=== PATIENT | female | born 1970 | race Caucasian/White ===

== ENCOUNTER → 2020-03-20 11:33 | Outpatient (BNVA) | payer BC, SELFPAY | PROVIDERS: Visit Provider Nurse Practitioner Family | DX: Z79.899 Other long term (current) drug therapy (principal); E55.9 Vitamin D deficiency, unspecified; R53.83 Other fatigue; Z13.6 Encounter for screening for cardiovascular disorders; Z01.419 Encounter for gynecological examination (general) (routine) without abnormal findings; Z12.31 Encounter for screening mammogram for malignant neoplasm of breast | CPT/HCPCS: 80053; 80061; 81001; 82306; 83036; 84443; 85025; 88175 ==

== ENCOUNTER 2020-05-20 11:56 | Outpatient (CLI) | payer BC, SELFPAY ==
--- NOTE | 2020-05-20 12:00 | MM_ITS ---
WS: [id number] SCREENING DIGITAL MAMMOGRAM WITH CAD HISTORY: breast cancer screening COMPARISON: 08/26/2015 Bilateral CC and MLO views submitted. Computer aided detection analyzed. Breast composition: There are scattered areas of fibroglandular density. No suspicious masses, microc alcifications or architectural distortion. MM/[place] [id number] IMPRESSION: BI-RADS: 1-Negative FOLLOW UP: 1 Year Follow-up
== END 2020-05-20 11:57 | disposition home or self-care (01) ==
PROVIDERS: PCP Nurse Practitioner Family; Visit Provider Nurse Practitioner Family
DX: Z12.31 Encounter for screening mammogram for malignant neoplasm of breast (principal)
CPT/HCPCS: 77067

== ENCOUNTER → 2020-08-06 12:17 | Outpatient (BNVA) | payer BC, SELFPAY | PROVIDERS: PCP Nurse Practitioner Family; Visit Provider Nurse Practitioner Family | DX: S46.911A Strain of unspecified muscle, fascia and tendon at shoulder and upper arm level, right arm, initial encounter (principal); X58.XXXA Exposure to other specified factors, initial encounter | CPT/HCPCS: 73030; 80053; 81003; 82150; 83036; 83690; 85025 ==

== ENCOUNTER → 2020-08-13 11:19 | Outpatient (BNVA) | payer BC, SELFPAY | PROVIDERS: PCP Nurse Practitioner Family; Visit Provider Internal Medicine | DX: Z11.59 Encounter for screening for other viral diseases (principal); R10.9 Unspecified abdominal pain; K92.1 Melena | CPT/HCPCS: 87635 ==

== ENCOUNTER 2020-08-14 07:49 | Outpatient (CLI) | payer BC, SELFPAY ==
--- NOTE | 2020-08-14 08:00 | US_ITS ---
WS: [id number] Complete ABDOMINAL ULTRASOUND HISTORY: abdominal pain COMPARISON: None available. Liver: 19.5 cm in length. Liver is very large and heterogeneous. Lobulated borders. There are multipl e ill-defined hyperechoic lesions throughout the liver. Highly suspicious for metastatic disease. No bile duct dilatation. Gallbladder: Normally distended with no gallstones, wall thickening or pericholecystic fluid. Gallbladder wall thickness: 0.3 cm. Pancreas: Normal size and echogenicity. CBD: 0.4 cm. Right kidney: 11.5 cm x 4.5 cm x 3.9 cm. Normal size kidney. On several images submitted there is an asymmetric appearance of the cortex of the kidney but no discrete mass. Left kidney: 10.6 cm x 4.5 cm x 4.5 cm. No mass, cortical thickening or hydronephrosis. Spleen: Normal size and echogenicity. Abdominal aorta and IVC are within normal limits. No ascites. US/US abdomen complete* [id number] IMPRESSION: 1. Abnormal liver. Highly suspicious for diffuse metastatic disease. This will need to be confirmed by CT evaluation. Recommend CT abdomen and pelvis with IV and oral contrast. 2. Negative gallbladder.
== END 2020-08-14 07:50 | disposition home or self-care (01) ==
LOC: US 07:50
PROVIDERS: PCP Nurse Practitioner Family; Visit Provider Nurse Practitioner Family
DX: R10.9 Unspecified abdominal pain (principal)
CPT/HCPCS: 76700

== ENCOUNTER 2020-08-15 08:23 | Outpatient (CLI) | payer BC, SELFPAY ==
--- NOTE | 2020-08-15 10:00 | CT_ITS ---
WS: [id number] CT CHEST, ABDOMEN AND PELVIS WITH CONTRAST. HISTORY: elevated liver enzymes, abnormal US TECHNIQUE: Contiguous 5 mm axial imaging performed through the chest, abdomen and pelvis with IV cont rast, oral contrast has been provided. Coronal and sagittal reformats chest. Coronal and sagittal ref ormats through the abdomen and pelvis. All CT scans at [facility] use at least one of the se dose optimization techniques: automated exposure control; mA and/or kV adjustment per patient size (includes targeted exams where dose is matched to clinical indication); or iterative reconstruction. CONTRAST: Omnipaque 300; 95 mL IV. DLP: 1396.32 mGy.cm COMPARISON: Ultrasound 08/14/2020. Chest CT: Lobulated 4.4 mm nodule in the RIGHT lower lobe, image 31 of series 4. No additional nodule s are identified. No pneumonia. No mediastinal or hilar adenopathy. Heart size is normal. No pericard ial or pleural effusion. Small hiatal hernia. 8 mm RIGHT thyroid nodule. Abdomen CT: Liver is enlarged and contains innumerable areas of decreased attenuation consistent with metastatic disease. This corresponds to the ultrasound was recently performed. Largest lesions measu re up to 6 cm in diameter. Majority of these lucencies are confluent. Gallbladder is negative. Spleen and pancreas are negative. No adrenal mass. Normal kidneys. Normal aorta. No adenopathy in the upper abdomen. 8 cm distal colon/sigmoid stricture with near complete obstruction. The hawkins are of increased attenu ation and enhancement. This is a neoplastic stricture into proven otherwise. There is mild more proxi mal obstruction. No additional lesions are identified. The appendix is negative. No adjacent lymph no sheron are identified. Pelvic CT: There is a small amount of free fluid in the pelvis. Slightly more than physiologic. Mildl y heterogeneous appearance to the endometrium and a hyper dense nodule in the LEFT uterus may be a ti ny fibroid. Urinary bladder is well distended. There are 2 sclerotic areas in the pelvis which could very well be benign bone islands. There is one sclerotic area in each ilium. CT/CT chest abd pel w con* IMPRESSION: 1. Diffuse metastatic disease throughout the liver. 2. High-grade distal descending/sigmoid neoplastic stricture extending over le ngth of 8 cm. Near complete colonic obstruction. No adjacent pericolonic adenop athy. 3. Indeterminate, noncalcified RIGHT lower lobe pulmonary nodule measures 4.4 mm. Neoplastic versus benign. 4. Small amount free fluid in the pelvis, slightly greater than physiologic. 5. Small sclerotic foci within the pelvis bilaterally may be benign bone islan ds. Very early osteoblastic disease cannot be completely excluded. Notified Dr. Cifuentes at 08/15/2020 12:47 PM.
[2020-08-15] MEDS: iohexol 300 mg/mL 50 mL Btl PO (11:02)
[2020-08-15] MEDS: iohexol 300 mg/mL 100 mL Btl IV (12:16)
== END 2020-08-15 08:24 | disposition home or self-care (01) ==
LOC: RAD 10:53
PROVIDERS: PCP Nurse Practitioner Family; Visit Provider Nurse Practitioner Family
DX: R93.5 Abnormal findings on diagnostic imaging of other abdominal regions, including retroperitoneum; R94.5 Abnormal results of liver function studies; K76.9 Liver disease, unspecified; K56.699 Other intestinal obstruction unspecified as to partial versus complete obstruction; R91.1 Solitary pulmonary nodule
CPT/HCPCS: 71260; 74177

== ENCOUNTER 2020-08-15 08:23 | Day surgery (SDC) | payer BC, SELFPAY ==
[2020-08-14 10:11] VITALS: BMI 26.5
[2020-08-15 08:45] VITALS: BP 153/111; PULSE 117; RESP 18; TEMP 36.8; O2SAT 98
[2020-08-15] MEDS: sodium chloride 0.9% 1,000 ML 30 ML IV (08:58)
[2020-08-15 09:00] LABS: OR HCG Qualitative Urine Negative (Negative)
--- NOTE | 2020-08-15 09:03 | W.PM.OPSUD ---
Surgery/Procedure H&P Update DATE OF PROCEDURE: August 15, 2020 DATE H&P PERFORMED: 08/13/20 PREOP DIAGNOSIS: blood PLANNED PROCEDURE: Operation Date: 08/15/20 09:30 Proposed Procedures p EGD(Not Applicable) - Brendan Cifuentes MD s Colonoscopy(Not Applicable) - Brendan Cifuentes MD Operation Date: 08/15/20 09:30 Proposed Procedures p EGD k92.1/r10.9/55047/66570(Not Applicable) - Brendan Cifuentes MD s Colonoscopy(Not Applicable) - Brendan Cifuentes MD
--- NOTE | 2020-08-15 09:03 | ANES.PREANE2 ---
Pre-Anesthetic Assessment Pre-Anesthetic Assessment: Height/Weight: Height 1.78 m Weight 83.915 kg Temp Pulse Resp BP Pulse Ox 98.2 F 117 H 18 153/111 98 08/15/20 08:45 08/15/20 08:45 08/15/20 08:45 08/15/20 08:45 08/15/20 08:45 Preop Diagnosis: blood in stool Proposed Procedure: Operation Date: 08/15/20 09:30 Proposed Procedures p EGD(Not Applicable) - Brendan Cifuentes MD s Colonoscopy(Not Applicable) - Brendan Cifuentes MD Operation Date: 08/15/20 09:30 Proposed Procedures p EGD k92.1/r10.9/19981/36117(Not Applicable) - Brendan Cifuentes MD s Colonoscopy(Not Applicable) - Brendan Cifuentes MD Familial anesthetic complications: None Was Beta Amanda taken within 24 hours: N/A Last intake: Intake Last Liquid Date 08/14/20 Last Liquid Time 21:00 Last Solid Date 08/13/20 Last Solid Time 19:00 Social: Social History: No tobacco Exam: Pre-Anes Outpt Exam: alert, oriented x 3, clear to auscultation bilaterally and regular rate & rhythm Airway: Cervical ROM: WNL MP: 3 Dentition: Full Hepatic: Comments: increased lfts GI: GI: GERD Anesthetic Plan: ASA status: 2 Anesthesia: MAC Risk of > 500 ml blood loss (7ml/kg in children): No Meds/Allergies Current Medications: Current Medications Generic Name Dose Route Start Last Admin Trade Name Freq PRN Reason Stop Dose Admin Sodium Chloride 1,000 mls @ 30 ml s/hr 08/15/20 08:45 08/15/20 08:58 Sodium Chloride 0.9% IV 08/16/20 08:44 30 mls/hr .Q24H GAYE Administration PFSH Anesthesia PFSH: Medical History Abdominal pain Actinic keratoses Allergic dermatitis Blood in stool Breast cancer screening by mammogram Elevated liver enzymes Fatigue GERD (gastroesophageal reflux disease) Hypertension screen Medication management Medication management Right shoulder strain Vitamin D deficiency Well woman exam with routine gynecological exam Family History Mother Diabetes Hypertension Father Diabetes Social History Smoking and tobacco status: never smoked Alcohol intake: current History of recent travel: No Female Reproductive History: Date of last menstrual period: 07/24/20 Para: 3 Data Anesthesia Other Labs: Laboratory Results - last 48 hr 08/15/20 08:39 Urine HCG, Qual Negative Cardiac Studies: No Data to Display
--- NOTE | 2020-08-15 10:00 | ANE.PACU2 ---
Inpatient post-anesthesia follow up: Airway intact: Yes Vital signs: Temperature 98 F Pulse Rate 85 Respiratory Rate 16 Blood Pressure 139/98 Pulse Oximetry 100 Oxygen Delivery Me thod Room Air Oxygen Flow Rate Fraction of Inspir ed Oxygen Hydration adequate: Yes Nausea and vomiting: No Pain level: 1 Mental status: Baseline
[2020-08-15 10:04] VITALS: BP 102/76; PULSE 89; RESP 16; TEMP 36.6; O2SAT 100
[2020-08-15 10:43] VITALS: BP 139/98; PULSE 85; RESP 16
[2020-08-15 11:12] LABS: Basophils # 0.1 10^3/uL (0.0-0.1); Basophils % 0.5 %; Eosinophils # 0.2 10^3/uL (0.0-0.8); Eosinophils % 1.6 %; Hematocrit 35.2 % (37.0-47.0); Lymphocytes # 1.4 10^3/uL (0.8-4.8); Lymphocytes % 10.1 %; Mean Corpuscular HGB Conc 31.3 g/dL (30.0-36.0); Mean Corpuscular Hemoglobin 26.9 pg (28.0-34.0); Mean Corpuscular Volume 86.1 fL (81-99); Mean Platelet Volume 9.7 fL (7.4-10.4); Monocytes # 0.7 10^3/uL (0.2-0.9); Monocytes % 4.7 %; Neutrophils # 11.41 10^3/uL (1.8-7.7); Nucleated Red Blood Cells % 0 %; Platelet Count 466 10^3/cmm (130-400); Red Blood Count 4.09 10^6/uL (4.1-5.3); Red Cell Distribution Width 12.1 % (12.1-15.1); White Blood Count 13.8 10^3/uL (4.0-10.0)
[2020-08-15 11:23] LABS: INR 1.03 (0.8-1.2)
--- NOTE | 2020-08-15 12:28 | PC.NURSE ---
Pt remained in [place] 01 of OPS after colonoscopy while getting ready for CT scan and waiting for results.
[2020-08-15 13:18] LABS: Alanine Aminotransferase 89 U/L (0-33); Albumin Level 3.7 g/dL (3.5-5.2); Alkaline Phosphatase 361 IU/L (35-105); Aspartate Amino Transferase 66 U/L (0-32); Blood Urea Nitrogen 11 mg/dL (6-20); Calcium 9.3 mg/dL (8.5-10.5); Carbon Dioxide 23 mmol/L (22-29); Chloride 98 mmol/L (98-107); Globulin 3.4 g/dL (1.3-4.6); Glomerular Filtration Rate 89.3 mL/min (90-130); Glucose 91 mg/dL (65-115); Osmolality Calculated 279 mOsm/kg (285-295); Sodium 135 mmol/L (136-145); Total Bilirubin 0.6 mg/dL (0.15-1.2); Total Protein 7.1 g/dL (6.6-8.7)
[2020-08-15 20:48] LABS: H. Pylori / CLO Test Negative
== END 2020-08-15 12:45 | disposition home or self-care (01) ==
PROVIDERS: Anesthesiology; PCP Nurse Practitioner Family; Visit Provider Internal Medicine
DX: K52.9 Noninfective gastroenteritis and colitis, unspecified (principal); K92.1 Melena; R10.13 Epigastric pain; K29.70 Gastritis, unspecified, without bleeding; K21.9 Gastro-esophageal reflux disease without esophagitis
CPT/HCPCS: 12345; 36415; 43239; 45331; 45335; 80053; 82378; 84703; 85025; 85610; 87077; 88305; J2704; J7030

== ENCOUNTER 2020-08-19 13:02 | Outpatient (CLI) | payer BC, SELFPAY ==
--- NOTE | 2020-08-19 16:50 | ONC CON_ITS ---
Dr. Ann New Patient Note Patient: Christy Tejeda Unit #: [id number]: 1970 Dicatated By: Ulices Ann M.D.Date of Visit: Aug 19, 2020 Onc MED New Patient/Consult Referring Physician: Dr. Roberto Carlos Cifuentes M.D. Chief Complaint: Colon cancer. History of Present Illness: This is a 49-year-old woman with newly diagnosed, metastatic colon cancer. She has been in good general health. She began having symptoms 1 week ago, first with pain in her right shoulder. She subsequently developed pretty severe pain under her right diaphragm radiating around to the back, and then she began having bloody stools. She was seen initially on 08/06/2020 her liver enzymes were noted to be moderately elevated. She was then seen by Dr. Cifuentes on 08/13/2020, and on 08/15/2020 she underwent EGD and flexible sigmoidoscopy. The sigmoidoscopy showed a large size nearly obstructing malignant appearing mass at 25 cm. Biopsy was obtained, but a pathology report is not yet available. In the meantime, her abdominal ultrasound from 08/14/2020 was highly suspicious for diffuse hepatic metastatic disease. CT scans of the chest, abdomen, and pelvis on 08/15/2020 showed a lobulated 4.4 mm nodule in the right lower lobe felt to be indeterminate. There are no other pulmonary nodules noted. There was evidence of diffuse metastatic disease throughout the liver with the largest lesions measuring up to 6 cm in diameter. A neoplastic stricture was noted in the distal descending colon/sigmoid extending over a length of 8 cm. There appeared to be near complete colonic obstruction. There was no adjacent pericolonic adenopathy noted. A small amount of free fluid was noted in the pelvis, slightly greater than physiologic. Small sclerotic foci within the pelvis bilaterally apeared consistent with benign bone islands, but with early osteoblastic metastatic disease not excluded. She is seen now for further management. She does report having some fatigue, but overall she has still been feeling good generally. Her activity is normal. ECOG score is 0. She has had some early satiety, but her weight is stable. She has not had fever or night sweats. She was having some hot flashes a while back, but not recently. She has no shortness of breath or cough. She has had some pain in the mid chest area, attributable to stress. She does not complain of nausea. She has had some belching. She says her bowels have been horrible. Yesterday she had her first bowel movement since her colonoscopy she said it was soft but mostly blood. She has just mild discomfort now in the right upper quadrant area. She has no complaints. She has no other joint or bone pain. She does not complain of headache or dizziness, and she has no focal neurologic symptoms. Past Medical History: She has had no prior medical illnesses. Past Surgical History: She underwent flexible sigmoidoscopy on 08/15/2020. She has had no prior surgeries. Medications: Beta Glucan 3 Capsule Oral daily, Vitamin D3 1 Capsule Oral daily, Vitamin K2 1 Tablet (of 40 mcg) Oral daily Allergies: No Known Allergies. 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 She is a non-smoker. She has had only rare alcohol use. Family History: Both parents are living, father at age 75 and mother at age 73, and both have type 2 diabetes. Three brothers are in good health. A paternal aunt had breast cancer and a great grandfather on his father side had stomach cancer. Review Of Symptoms: Constitutional - She has had some fatigue, but she still has normal activity. Appetite has been good, she has had early satiety. Her weight is stable. She has not had fever or night sweats. She was having some hot flashes a while back. ECOG score is 0, Eyes - No change in vision, ENMT - No hearing loss or tinnitus. No sinus congestion/drainage. No mouth sores. No sore throat or difficulty swallowing, Hematologic/Lymphatic - No abnormal bruising or bleeding, Respiratory - No shortness of breath. No cough. No pleuritic pain or hemoptysis, Cardiovascular - She has been have pain in her mid chest area, attributable to stress. No palpitations, Gastrointestinal - She has some discomfort in the right upper quadrant area, not severe pain. No nausea or vomiting. No heartburn or acid reflux, but she has had belching. Her bowels have been horrible. Yesterday she had her first bowel movement since her colonoscopy. It was soft and appeared to be mostly blood, Genitourinary (F) - No dysuria or hematuria. No urinary frequency. No urgency or incontinence, Musculoskeletal - No other joint or bone pain, Integumentary - No skin rash, but she does have a small skin lesion on her upper chest, Neurologic - No headache or dizziness. No numbness or tingling. No other focal neurologic symptoms, Psychiatric - She has anxiety. No insomnia. Vital Signs: Performed on Aug 19, 2020 14:32: 2, 26.03, 2.00 sq.m, 70.00 in, 100 %, 114 /min (HIGH), 16 /min, 166/87 mm(hg) (HIGH), 99.8 F (HIGH), and 181.4 lbs (HIGH). Physical Examination: Constitutional - She appears to be in good general health, Eyes - Sclerae nonicteric. Conjunctivae clear, ENMT - No lesions noted in the oral cavity, Neck - No mass or thyromegaly, Hematologic/Lymphatic - No cervical, clavicular, or axillary adenopathy, Respiratory - Lungs are clear with good air movement bilaterally, Cardiovascular - Heart rhythm is regular. There is no murmur, gallop, or rub noted, Abdomen - Soft. There is mild tenderness in the right upper quadrant. Liver is not overtly enlarged. Spleen is not palpable. There is no abdominal mass or ascites noted and there is no inguinal adenopathy, Back/Spine - No spine or CVA tenderness noted, Extremities - No edema. Pedal pulses are palpable bilaterally, Integumentary - There is an irregular skin lesion in the upper mid chest wall. It is slightly raised. The appearance is suspicious for a basal cell cancer, Neurologic - No focal neurologic deficits noted. Labs/Imaging: Her baseline CEA is 13,848.0 ng/mL. Impression: 1. Patient with newly diagnosed cancer of the descending colon/sigmoid. Her tumor appears to be locally advanced with near complete colonic obstruction and there is CT evidence of multiple metastatic lesions throughout the liver. 2. She underwent flexible sigmoidoscopy with biopsy on 08/15/2020. Pathology is still pending. 3. She has a skin lesion on the upper mid chest wall which appears suspicious for basal cell cancer. Plan: The CT findings and the endoscopy findings were reviewed with the patient and her . We also reviewed the CT images. We discussed the clinical implications. She has obvious colon cancer which is both locally advanced and metastatic. Pathology results are not yet available, but the findings are certainly consistent with colonic adenocarcinoma. If she were to have or develop obstructive symptoms, she would need to either undergo a palliative surgical procedure or placement of a colonic stent. In the absence of obstructive symptoms, I think it would be best to proceed with systemic therapy, as there would be no significant benefit with resecting the primary malignancy. I reviewed standard chemotherapy options for metastatic colon cancer, including the anticipated side effects. We also discussed the fact that treatment would be guided, in part, by results of molecular analysis, particularly the KRAS mutation status of the tumor and the status of the mismatch repair proteins. With a KRAS wild type cancer, I would favor using FOLFIRI/vectibix as initial therapy, assuming she is willing to accept the expected skin rash that accompanies it. With mutant KRAS I would more likely use FOLFOX/Avastin. At this point she is undecided about taking chemotherapy. I did encourage her to seek a second opinion, and she will likely want to do that. In the meantime, I will request next generation sequencing on the pathology specimen, assuming it is adequate for analysis. I did address all of their questions, and I spent more than an hour [id number] with the patient and her . Signed By: Ulices Ann M.D. <<Signature on File>>
== END 2020-08-19 13:03 | disposition home or self-care (01) ==
PROVIDERS: PCP Nurse Practitioner Family; Visit Provider Internal Medicine Medical Oncology
DX: C18.7 Malignant neoplasm of sigmoid colon (principal); C78.7 Secondary malignant neoplasm of liver and intrahepatic bile duct
CPT/HCPCS: 81275; 88381; 99205

== ENCOUNTER 2020-09-30 08:56 | Outpatient (CLI) | payer BC, SELFPAY ==
[2020-09-30 09:38] LABS: Basophils # 0.1 10^3/uL (0.0-0.1); Basophils % 1.3 %; Eosinophils # 0.2 10^3/uL (0.0-0.8); Eosinophils % 2.3 %; Hematocrit 30.9 % (37.0-47.0); Hemoglobin 9.3 g/dL (11.5-15.3); Lymphocytes # 1.2 10^3/uL (0.8-4.8); Mean Corpuscular HGB Conc 30.1 g/dL (30.0-36.0); Mean Corpuscular Hemoglobin 25.1 pg (28.0-34.0); Mean Corpuscular Volume 83.3 fL (81-99); Mean Platelet Volume 9.5 fL (7.4-10.4); Monocytes # 0.8 10^3/uL (0.2-0.9); Monocytes % 10.1 %; Neutrophils # 5.81 10^3/uL (1.8-7.7); Neutrophils % 71.2 %; Nucleated Red Blood Cells % 0 %; Platelet Count 545 10^3/cmm (130-400); Red Blood Count 3.71 10^6/uL (4.1-5.3); Red Cell Distribution Width 14.7 % (12.1-15.1); White Blood Count 8.2 10^3/uL (4.0-10.0)
[2020-09-30 09:54] LABS: Alanine Aminotransferase 39 U/L (0-33); Albumin Level 3.6 g/dL (3.5-5.2); Alkaline Phosphatase 445 IU/L (35-105); Anion Gap 14.2 (5-19); Aspartate Amino Transferase 49 U/L (0-32); Blood Urea Nitrogen 6 mg/dL (6-20); Calcium 9.3 mg/dL (8.5-10.5); Carbon Dioxide 27 mmol/L (22-29); Chloride 99 mmol/L (98-107); Globulin 2.9 g/dL (1.3-4.6); Glomerular Filtration Rate 131.7 mL/min (90-130); Glucose 97 mg/dL (65-115); Osmolality Calculated 280 mOsm/kg (285-295); Potassium 4.2 mmol/L (3.5-5.1); Sodium 136 mmol/L (136-145); Total Bilirubin 0.5 mg/dL (0.15-1.2); Total Protein 6.5 g/dL (6.6-8.7)
== END 2020-09-30 08:57 | disposition home or self-care (01) ==
LOC: ONCMED 09:00
PROVIDERS: PCP Nurse Practitioner Family; Visit Provider Internal Medicine Medical Oncology
DX: C18.6 Malignant neoplasm of descending colon (principal); C78.7 Secondary malignant neoplasm of liver and intrahepatic bile duct
CPT/HCPCS: 36415; 80053; 82378; 85025

== ENCOUNTER 2020-10-14 05:47 | Outpatient (CLI) | payer BC, SELFPAY ==
[2020-10-14 10:04] LABS: Basophils # 0.1 10^3/uL (0.0-0.1); Basophils % 1.7 %; Eosinophils # 0.1 10^3/uL (0.0-0.8); Eosinophils % 3.1 %; Hematocrit 30.2 % (37.0-47.0); Hemoglobin 9.2 g/dL (11.5-15.3); Lymphocytes % 29.5 %; Mean Corpuscular HGB Conc 30.5 g/dL (30.0-36.0); Mean Corpuscular Hemoglobin 24.9 pg (28.0-34.0); Mean Corpuscular Volume 81.6 fL (81-99); Mean Platelet Volume 9.9 fL (7.4-10.4); Monocytes # 0.4 10^3/uL (0.2-0.9); Monocytes % 11.4 %; Neutrophils # 1.91 10^3/uL (1.8-7.7); Neutrophils % 54.3 %; Nucleated Red Blood Cells % 0 %; Platelet Count 260 10^3/cmm (130-400); Red Cell Distribution Width 15.3 % (12.1-15.1); White Blood Count 3.5 10^3/uL (4.0-10.0)
[2020-10-14 10:20] LABS: Alanine Aminotransferase 35 U/L (0-33); Albumin Level 3.6 g/dL (3.5-5.2); Alkaline Phosphatase 336 IU/L (35-105); Anion Gap 13.2 (5-19); Aspartate Amino Transferase 46 U/L (0-32); Blood Urea Nitrogen 9 mg/dL (6-20); Calcium 9.5 mg/dL (8.5-10.5); Carbon Dioxide 26 mmol/L (22-29); Chloride 102 mmol/L (98-107); Globulin 2.8 g/dL (1.3-4.6); Glomerular Filtration Rate 106.7 mL/min (90-130); Glucose 95 mg/dL (65-115); Osmolality Calculated 282 mOsm/kg (285-295); Potassium 4.2 mmol/L (3.5-5.1); Sodium 137 mmol/L (136-145); Total Bilirubin 0.3 mg/dL (0.15-1.2); Total Protein 6.4 g/dL (6.6-8.7)
== END 2020-10-14 05:48 | disposition home or self-care (01) ==
LOC: ONCMED 05:49
PROVIDERS: PCP Nurse Practitioner Family; Visit Provider Internal Medicine Medical Oncology
DX: C18.7 Malignant neoplasm of sigmoid colon (principal); C78.7 Secondary malignant neoplasm of liver and intrahepatic bile duct
CPT/HCPCS: 36591; 80053; 82378; 85025

== ENCOUNTER 2020-10-28 09:09 | Outpatient (CLI) | payer BC, SELFPAY ==
[2020-10-28 10:03] LABS: Hematocrit 31.1 % (37.0-47.0); Hemoglobin 9.4 g/dL (11.5-15.3); Lymphocytes % 53.1 %; Mean Corpuscular HGB Conc 30.2 g/dL (30.0-36.0); Mean Corpuscular Hemoglobin 25.2 pg (28.0-34.0); Mean Corpuscular Volume 83.4 fL (81-99); Mean Platelet Volume 10.1 fL (7.4-10.4); Monocytes # 0.3 10^3/uL (0.2-0.9); Monocytes % 14.3 %; Neutrophils % 28.6 %; Nucleated Red Blood Cells % 0 %; Platelet Count 231 10^3/cmm (130-400); Red Blood Count 3.73 10^6/uL (4.1-5.3); Red Cell Distribution Width 17.1 % (12.1-15.1)
[2020-10-28 10:11] LABS: Neutrophils # 0.56 10^3/uL (1.8-7.7)
[2020-10-28 10:43] LABS: Alanine Aminotransferase 47 U/L (0-33); Albumin Level 3.6 g/dL (3.5-5.2); Alkaline Phosphatase 258 IU/L (35-105); Anion Gap 13.2 (5-19); Aspartate Amino Transferase 49 U/L (0-32); Blood Urea Nitrogen 7 mg/dL (6-20); Calcium 9.4 mg/dL (8.5-10.5); Carbon Dioxide 27 mmol/L (22-29); Chloride 105 mmol/L (98-107); Globulin 2.7 g/dL (1.3-4.6); Glomerular Filtration Rate 131.7 mL/min (90-130); Glucose 101 mg/dL (65-115); Osmolality Calculated 290 mOsm/kg (285-295); Potassium 4.2 mmol/L (3.5-5.1); Sodium 141 mmol/L (136-145); Total Bilirubin 0.5 mg/dL (0.15-1.2); Total Protein 6.3 g/dL (6.6-8.7)
== END 2020-10-28 09:10 | disposition home or self-care (01) ==
PROVIDERS: PCP Nurse Practitioner Family; Visit Provider Internal Medicine Medical Oncology
DX: C78.7 Secondary malignant neoplasm of liver and intrahepatic bile duct (principal)
CPT/HCPCS: 36591; 80053; 82378; 85025

== ENCOUNTER 2020-10-31 19:19 | Emergency (ER) | payer BC, SELFPAY ==
[2020-10-31] VITALS (35 sets, daily range): BP systolic 104–118; BP diastolic 64–77; PULSE 89–120; RESP 18–20; TEMP 37.2–39.3; O2SAT 94–100; BMI 23.6
--- NOTE | 2020-10-31 20:21 | XRR_ITS ---
PROCEDURE INFORMATION: Exam: XR Chest, 1 View Exam date and time: 10/31/2020 8:23 PM Age: 49 years old Clinical indication: Fever; Prior surgery; Surgery type: Port right side TECHNIQUE: Imaging protocol: XR of the chest Views: 1 view. COMPARISON: CT chest abd pel w con* 08/15/2020 12:14 PM FINDINGS: Tubes, catheters and devices: There is a right IJ port with tip in the superior vena cava. Lungs: The lungs are clear. There is no airspace consolidation. Pulmonary vascularity is within normal limits. Pleural space: Unremarkable. No pleural effusion. No pneumothorax. Heart/Mediastinum: Unremarkable. No cardiomegaly. Bones/joints: No acute abnormality. XR/XR chest 1V portable [id number] IMPRESSION: No active pulmonary disease.
[2020-10-31] MEDS: acetaminophen 500 mg Tablet 1000 MG PO (20:32)
[2020-10-31] MEDS: sodium chloride 0.9% 500 ML IV (20:41)
[2020-10-31 20:59] LABS: Add Urine Microscopic? NO
[2020-10-31 21:00] LABS: Basophils % 1.7 %; Eosinophils % 1.7 %; Hematocrit 33.3 % (37.0-47.0); Hemoglobin 10.2 g/dL (11.5-15.3); Mean Corpuscular HGB Conc 30.6 g/dL (30.0-36.0); Mean Corpuscular Hemoglobin 25.1 pg (28.0-34.0); Mean Platelet Volume 10.1 fL (7.4-10.4); Monocytes # 0.5 10^3/uL (0.2-0.9); Monocytes % 29.1 %; Neutrophils % 10.5 %; Nucleated Red Blood Cells % 0 %; Platelet Count 284 10^3/cmm (130-400); Red Blood Count 4.06 10^6/uL (4.1-5.3); Red Cell Distribution Width 18.1 % (12.1-15.1); White Blood Count 1.7 10^3/uL (4.0-10.0)
[2020-10-31 21:07] LABS: Urine Appearance Clear (CLEAR); Urine Color Yellow (Yellow)
--- NOTE | 2020-10-31 21:07 | W.ED.FEVER ---
HPI - Fever General: Chief Complaint: Fever Stated Complaint: going through chemo, has fever Time Seen by Provider: 10/31/20 19:56 History of Present Illness: HPI Narrative: 49-year-old female with a history of colon cancer. She is undergoing chemotherapy. Her last induction was on 10/15. She missed her last dose because her neutrophil count was low, 0.5. She presents tonight with a fever. She has had some very mild belly pain today. She has been having change in her stool for the past 4 to 5 days. She denies mouth sores, cough, congestion, any other symptoms. She has had the chills with her fever today. Fever is significant here of 102.7. She has not had any known Covid contacts MD elicited complaint: fever Pertinent past history: immunosuppression and other Onset (ago): hour(s) Context: on chemotherapy Relieving factors: nothing Associated symptoms: Reports abdominal pain (Mild), chills and nausea; Deny chest pain, confusion, headache(s) or vomiting Review of Systems Const: Reports: chills Card: Denies: chest pain or edema Resp: Denies: dyspnea, productive cough or non-productive cough GI: Reports: abdominal pain (Mild) and nausea; Denies: vomiting : Denies: difficulty voiding Neuro: Reports: dizziness; Denies: headache(s) or confusion PFS ED PFSH: Medical History (Updated 11/01/20 @ 01:59 by Jose Erazo DO) Abdominal pain Actinic keratoses Allergic dermatitis Blood in stool Breast cancer screening by mammogram Colon cancer Colon cancer metastasized to liver Elevated liver enzymes Fatigue GERD (gastroesophageal reflux disease) Hypertension screen Medication management Medication management Right shoulder strain Vitamin D deficiency Well woman exam with routine gynecological exam Family History Mother Diabetes Hypertension Father Diabetes Social History Smoking and tobacco status: never smoked Alcohol intake: current History of recent travel: No Female Reproductive History: Date of last menstrual period: 07/24/20 Para: 3 Physical Exam Const: GENERAL APPEARANCE: well developed ORIENTATION/CONSCIOUSNESS: Yes oriented to person, Yes oriented to place and Yes oriented to time HENMT: COMMON NORMALS: normocephalic, external ears normal and Normal external nose present HEAD & SCALP: normocephalic FACE & SINUS: normal facial exam NOSE: Normal external nose present and No nasal discharge present EXTERNAL EAR: Yes external ears normal Eye: COMMON NORMALS: Equal, round and reactive pupils present, EOMs intact bilaterally and conjunctivae normal EYELID: eyelids normal CONJUNCTIVA: Yes conjunctivae normal PUPIL: Yes Equal, round and reactive pupils present Neck/C-Spine: GENERAL: No tracheal deviation Chest: COMMONS NORMALS: normal inspection of the chest CHEST: No tenderness Resp: COMMON NORMALS: clear to auscultation bilaterally EFFORT & INSPECTION: No tachypneic, No respiratory distress, No retractions, No uses accessory muscles and No tracheal deviation AUSCULTATION: clear to auscultation bilaterally, no rhonchi, no wheezes and lung sounds not diminished Cardio: COMMON NORMALS: regular rate and regular rhythm RATE: regular rate RHYTHM: regular rhythm HEART SOUNDS: no murmurs PERIPHERAL PULSES: radial pulses present GI: INSPECTION: No abdominal distension AUSCULTATION: No Hyperactive bowel sounds present and No Hypoactive bowel sounds present PALPATION: Yes Tenderness to palpation present (GI) (Mild) Details: RLQ, No Guarding due to palpation present (GI) and No Rigid due to palpation PERCUSSION: no dullness to percussion and no tympanic to percussion Neuro: SENSORIUM/ORIENTATION: Yes oriented to person, Yes oriented to place and Yes oriented to time Psych: COMMON NORMALS: mental status grossly normal Skin: COMMON NORMALS: no rashes or lesions noted GENERAL SKIN EXAM: no rashes or lesions noted Course Consultations: Consultation #1: [facility] on-call Vital Signs: Vital signs: Vital Signs Temperature 99.0 F 10/31/20 22:30 Pulse Rate 89 10/31/20 22:30 Respiratory Rate 18 10/31/20 21:21 Blood Pressure 111/77 11/01/20 00:20 Pulse Oximetry 98 11/01/20 00:10 MDM - Fever MDM Narrative: Medical decision making narrative: 49-year-old female patient with a history of colon cancer on chemotherapy. She has been neutropenic. She developed a fever. 102.7 on arrival here. Is down to 99 now after IV fluid and Tylenol. Clinically she feels good, and looks good. Her blood pressure is normal. Her heart rate is below 100 now that she is afebrile. White blood cell count is 1.7 with a neutrophil count of 0.18. No cause of fever found on chest x-ray, CT scan, influenza or rapid Covid antigen testing. Urinalysis is also negative. This patient essentially has a neutropenic fever. I spoke with the oncology physician button spindler for the [facility] [place] in [place] where she gets treatment. Recommendations are home on Augmentin and ciprofloxacin for 7 days. Neupogen injection here which has been given. She was covered with cefepime after blood cultures here for tonight. Close outpatient follow-up. She knows to return for any worsening of her symptoms. Lab Data: Labs: Lab Results 10/31/20 10/31/20 10/31/20 Range/Units 20:40 20:40 20:40 WBC 1.7 L (4.0-10.0) 10^3/ uL RBC 4.06 L (4.1-5.3) 10^6/u L Hgb 10.2 L (11.5-15.3) g/dL Hct 33.3 L (37.0-47.0) % MCV 82.0 (81-99) fL MCH 25.1 L (28.0-34.0) pg MCHC 30.6 (30.0-36.0) g/dL RDW 18.1 H (12.1-15.1) % Plt Count 284 (130-400) 10^3/c mm MPV 10.1 (7.4-10.4) fL Neut % (Auto) 10.5 % Lymph % (Auto) 57.0 % [place] % (Auto) 29.1 % Eos % (Auto) 1.7 % Baso % (Auto) 1.7 % Neut # (Auto) 0.18 L* (1.8-7.7) 10^3/u L Lymph # (Auto) 1.0 (0.8-4.8) 10^3/u L [place] # (Auto) 0.5 (0.2-0.9) 10^3/u L Eos # (Auto) 0.0 (0.0-0.8) 10^3/u L Baso # (Auto) 0.0 (0.0-0.1) 10^3/u L Nucleated RBC % (a uto) 0 % Nucleated RBCs # 0.0 /100WBC Sodium 130 L (136-145) mmol/L Potassium 3.8 (3.5-5.1) mmol/L Chloride 94 L (98-107) mmol/L Carbon Dioxide 23 (22-29) mmol/L Anion Gap 16.8 (5-19) BUN 8 (6-20) mg/dL Creatinine 0.6 (0.5-0.9) mg/dL GFR Calculation 106.7 (90-130) mL/min Glucose 111 (65-115) mg/dL Calculated Osmolal ity 269 L (285-295) mOsm/k g Lactate 1.0 (0.5-2.2) mmol/L Calcium 9.3 (8.5-10.5) mg/dL Total Bilirubin 0.6 (0.15-1.2) mg/dL AST 51 H (0-32) U/L ALT 45 H (0-33) U/L Alkaline Phosphata se 269 H (35-105) IU/L C-Reactive Protein 24.0 H (0.0-4.9) mg/L Total Protein 7.0 (6.6-8.7) g/dL Albumin 3.7 (3.5-5.2) g/dL Globulin 3.3 (1.3-4.6) g/dL Lipase 40 (13-60) U/L Procalcitonin 0.26 (0-0.5) ng/mL Urine Color (Yellow) Urine Appearance (CLEAR) Urine pH (5-7) Ur Specific Gravit y (1.005-1.030) Urine Protein (Negative) Urine Glucose (UA) (Normal) Urine Ketones (Negative) Urine Blood (Negative) Urine Nitrate (Negative) Urine Bilirubin (Negative) Prot Sulfosalicyli c Acd (Negative) Urine Urobilinogen (Negative) mg/dL Ur Leukocyte Kamala ase (Negative) Influenza Type A A g (Negative) Influenza Type B A g (Negative) SARS-CoV-2 Ag (Rap id) (Negative) 10/31/20 10/31/20 10/31/20 Range/Units 20:40 23:49 23:49 WBC (4.0-10.0) 10^3/ uL RBC (4.1-5.3) 10^6/u L Hgb (11.5-15.3) g/dL Hct (37.0-47.0) % MCV (81-99) fL MCH (28.0-34.0) pg MCHC (30.0-36.0) g/dL RDW (12.1-15.1) % Plt Count (130-400) 10^3/c mm MPV (7.4-10.4) fL Neut % (Auto) % Lymph % (Auto) % [place] % (Auto) % Eos % (Auto) % Baso % (Auto) % Neut # (Auto) (1.8-7.7) 10^3/u L Lymph # (Auto) (0.8-4.8) 10^3/u L [place] # (Auto) (0.2-0.9) 10^3/u L Eos # (Auto) (0.0-0.8) 10^3/u L Baso # (Auto) (0.0-0.1) 10^3/u L Nucleated RBC % (a uto) % Nucleated RBCs # /100WBC Sodium (136-145) mmol/L Potassium (3.5-5.1) mmol/L Chloride (98-107) mmol/L Carbon Dioxide (22-29) mmol/L Anion Gap (5-19) BUN (6-20) mg/dL Creatinine (0.5-0.9) mg/dL GFR Calculation (90-130) mL/min Glucose (65-115) mg/dL Calculated Osmolal ity (285-295) mOsm/k g Lactate (0.5-2.2) mmol/L Calcium (8.5-10.5) mg/dL Total Bilirubin (0.15-1.2) mg/dL AST (0-32) U/L ALT (0-33) U/L Alkaline Phosphata se (35-105) IU/L C-Reactive Protein (0.0-4.9) mg/L Total Protein (6.6-8.7) g/dL Albumin (3.5-5.2) g/dL Globulin (1.3-4.6) g/dL Lipase (13-60) U/L Procalcitonin (0-0.5) ng/mL Urine Color Yellow (Yellow) Urine Appearance Clear (CLEAR) Urine pH 8 H (5-7) Ur Specific Gravit y 1.010 (1.005-1.030) Urine Protein Neg (Negative) Urine Glucose (UA) Norm (Normal) Urine Ketones Negative (Negative) Urine Blood Neg (Negative) Urine Nitrate Negative (Negative) Urine Bilirubin Neg (Negative) Prot Sulfosalicyli c Acd Negative (Negative) Urine Urobilinogen Norm (Negative) mg/dL Ur Leukocyte Kamala ase Negative (Negative) Influenza Type A A g Negative (Negative) Influenza Type B A g Negative (Negative) SARS-CoV-2 Ag (Rap id) Negative (Negative) Discharge Plan Discharge Patient Disposition: Home Clinical Impression: Fever and neutropenia Condition: Stable Prescriptions: New Augmentin 875-125 mg tablet 1 tab PO BID Qty: 14 RF: 0 Cipro 500 mg tablet 500 mg PO BID Qty: 14 RF: 0 No Action pantoprazole [Protonix] 40 mg tablet,delayed release (DR/EC) 40 mg PO DAILY 210 Days Qty: 30 RF: 2 Discharge Orders: Discharge ED (Routine); Ordered 11/01/20 Ordered By: Jose Erazo Referrals: LOUIS Cabrera, [employer] [Primary Care Provider] - Discharge Diet: Advance as tolerated Discharge Activity: Limit activity as instructed Patient Instructions: Fever in Adults (ED), Neutropenia (ED) Activity Restrictions/Additional Instructions: Antibiotics as directed. Return for inability to control temperature, especially despite 2-3 doses of antibiotics, vomiting liquids or medications, increased abdominal pain, any other concerning symptoms. You should continue to quarantine at home, at least until the results of your Covid test are back and deemed negative. Follow-up with your oncologist on Tuesday by phone. Coding Level of Care Code ED [employer] Press Operator for Gisela Fwd Exam Comprehensive
[2020-10-31 21:08] LABS: Bilirubin Urine Neg (Negative); Blood Urine Neg (Negative); Glucose Urine UA Norm (Normal); Ketones Urine Negative (Negative); Leukocyte Esterase Urine Negative (Negative); Nitrate Urine Negative (Negative); Protein Urine Neg (Negative); Sulfosalicylic Acid Urine Negative (Negative); Urobilinogen Urine Norm (Negative); pH Urine 8 (5-7)
[2020-10-31 21:22] LABS: Neutrophils # 0.18 10^3/uL (1.8-7.7)
[2020-10-31 21:26] LABS: Procalcitonin 0.26 ng/mL (0-0.5)
[2020-10-31 21:37] LABS: Alanine Aminotransferase 45 U/L (0-33); Albumin Level 3.7 g/dL (3.5-5.2); Alkaline Phosphatase 269 IU/L (35-105); Anion Gap 16.8 (5-19); Aspartate Amino Transferase 51 U/L (0-32); Blood Urea Nitrogen 8 mg/dL (6-20); Calcium 9.3 mg/dL (8.5-10.5); Carbon Dioxide 23 mmol/L (22-29); Chloride 94 mmol/L (98-107); Globulin 3.3 g/dL (1.3-4.6); Glomerular Filtration Rate 106.7 mL/min (90-130); Glucose 111 mg/dL (65-115); Lipase 40 U/L (13-60); Osmolality Calculated 269 mOsm/kg (285-295); Potassium 3.8 mmol/L (3.5-5.1); Sodium 130 mmol/L (136-145); Total Bilirubin 0.6 mg/dL (0.15-1.2)
--- NOTE | 2020-10-31 21:50 | CTR_ITS ---
PROCEDURE INFORMATION: Exam: CT Abdomen And Pelvis With Contrast Exam date and time: 10/31/2020 10:10 PM Age: 49 years old Clinical indication: Abdominal pain; Localized; Patient HX: Lower abdominal discomfort. Known colon cancer and liver mets. ; Additional info: Abd pain TECHNIQUE: Imaging protocol: Computed tomography of the abdomen and pelvis with intravenous contrast. Radiation optimization: All CT scans at this facility use at least one of these dose optimization techniques: automated exposure control; mA and/or kV adjustment per patient size (includes targeted exams where dose is matched to clinical indication); or iterative reconstruction. Contrast material: OMNI 300; Contrast volume: 95 ml; Contrast route: INTRAVENOUS (IV); COMPARISON: CT chest abd pel w con* 08/15/2020 12:14 PM RADIATION DOSE METRICS: Total DLP (mGy-cm): 573.17 FINDINGS: Liver: Multiple masses in the liver compatible with metastatic disease are again identified but are smaller and more well marginated. For example a mass in the posterior right lobe of the liver image 28 measures 3.5 x 2.6 cm today where previously it measured 4.9 x 3.7 cm. A large mass in the left lobe of the liver image 12 today measures 5.0 x 5.1 cm compared to 5.9 x 5.3 cm previously. No new or enlarging liver nodules are identified. Gallbladder and bile ducts: Normal. No calcified stones. No ductal dilation. Pancreas: Normal. No ductal dilation. Spleen: Normal. No splenomegaly. Adrenal glands: Normal. No mass. Kidneys and ureters: There is no evidence of hydronephrosis. There is no evidence of renal calcifications. Stomach and bowel: There is abundant colonic stool proximal to the malignant stricture. The distal colon is collapsed. No new bowel thickening or inflammatory changes. There is no evidence of intestinal perforation or obstruction. The high-grade neoplastic mass/stricture in the distal descending and sigmoid colon is again identified and overall unchanged in appearance. Appendix: No evidence of appendicitis. Intraperitoneal space: There is a small amount of fluid in the pelvis. Vasculature: Unremarkable.No abdominal aortic aneurysm. Lymph nodes: No new mass or adenopathy. Urinary bladder: Unremarkable as visualized. Reproductive: Unremarkable as visualized. Bones/joints: Unremarkable. No acute fracture. Soft tissues: Unremarkable. CT/CT abdomen pelvis w con* [id number] IMPRESSION: 1. Decreasing size of the numerous liver metastases. 2. There is abundant colonic stool proximal to the malignant stricture. The distal colon is almost completely collapsed. No new bowel thickening or inflammatory changes. 3. The high-grade neoplastic mass/stricture in the distal descending and sigmoid colon is again identified and overall unchanged in appearance. Radiation Dose CTDIVOL = (mGy): DLP = 573.17 (mGy-cm)
[2020-10-31] MEDS: iohexol 300 mg/mL 100 mL Btl IV (22:12)
[2020-10-31] MEDS: cefepime 1,000 MG in sodium chloride 0.9% (plus) 50 ML 100 MG IV (22:27)
[2020-11-01] VITALS (10 sets, daily range): BP systolic 102–111; BP diastolic 57–77; PULSE 84–94; RESP 14–16; O2SAT 96–99
[2020-11-01 00:22] LABS: Influenza A by IFA Negative (Negative); Influenza B by IFA Negative (Negative); SARS Covid-2 Antigen Negative (Negative)
[2020-11-02 20:30] LABS: Coronavirus Test Green County Not Detected
== END 2020-11-01 02:36 | disposition home or self-care (01) ==
PROVIDERS: Emergency Provider Emergency Medicine; PCP Nurse Practitioner Family
DX: R50.9 Fever, unspecified (principal); D70.9 Neutropenia, unspecified; Z85.038 Personal history of other malignant neoplasm of large intestine; Z85.05 Personal history of malignant neoplasm of liver
CPT/HCPCS: 12345; 71045; 74177; 80053; 81003; 83605; 83690; 84145; 85025; 86140; 87040; 87426; 87635; 87804; 96365; 96372; 96375; 99283; 99284; J0692; J1442; J7040; Q9967

== ENCOUNTER 2020-11-07 06:19 | Emergency (ER) | payer BC, SELFPAY ==
[2020-11-07 06:23] VITALS: PULSE 118; RESP 18; TEMP 38.3; O2SAT 98; BMI 23.6
--- NOTE | 2020-11-07 06:37 | XR_ITS ---
WS: [id number] PORTABLE CHEST HISTORY: dyspnea/cough COMPARISON: 10/31/2019 Port-A-Cath present with tip in the distal SVC. Lungs are clear and well expanded. No pleural effusion or pneumothorax. Cardiac size: Normal. Mediastinum/Aorta: Normal mediastinum. No osseous abnormality seen. XR/XR chest 1V portable [id number] IMPRESSION: Unremarkable portable chest.
[2020-11-07 07:04] LABS: Basophils # 0.1 10^3/uL (0.0-0.1); Basophils % 0.7 %; Eosinophils # 0.1 10^3/uL (0.0-0.8); Eosinophils % 0.9 %; Hematocrit 32.3 % (37.0-47.0); Hemoglobin 9.8 g/dL (11.5-15.3); Lymphocytes # 1.5 10^3/uL (0.8-4.8); Lymphocytes % 11.2 %; Mean Corpuscular HGB Conc 30.3 g/dL (30.0-36.0); Mean Corpuscular Volume 82.4 fL (81-99); Mean Platelet Volume 10.9 fL (7.4-10.4); Monocytes # 1.9 10^3/uL (0.2-0.9); Monocytes % 13.4 %; Neutrophils # 9.22 10^3/uL (1.8-7.7); Neutrophils % 66.8 %; Nucleated Red Blood Cells % 0 %; Platelet Count 224 10^3/cmm (130-400); Red Blood Count 3.92 10^6/uL (4.1-5.3); Red Cell Distribution Width 18.9 % (12.1-15.1); White Blood Count 13.8 10^3/uL (4.0-10.0)
--- NOTE | 2020-11-07 07:05 | ED_ITS ---
HPI - Fever General: Chief Complaint: Fever Stated Complaint: fever Time Seen by Provider: 11/07/20 06:35 History of Present Illness: HPI Narrative: 49-year-old female with a history of colon CA with hepatic metastasis was diagnosed approximately 3 to 4 months ago. She is currently being treated in [place] with chemotherapy biweekly. Her last treatment was 4 weeks ago. Week ago she was in the emergency room with a fever, she was discharged home with oral antibiotics her oncologist ultimately called her and had her come to MD elicited complaint: fever Onset (ago): hour(s) Exacerbating factors: nothing Relieving factors: nothing Associated symptoms: Reports chills; Deny abdominal pain, flank pain, chest pain, confusion, cough, diarrhea, dysuria, extremity pain, headache(s), myalgias, nasal congestion, nausea, night sweats, rash, rhinorrhea, short of breath, sinus pain, stiffness, sore throat, vaginal discharge, vomiting or weight loss Treatments prior to arrival fever: none Review of Systems Const: Reports: chills; Denies: night sweats ENMT: Denies: nasal congestion or sinus pain Card: Denies: chest pain Resp: Denies: dyspnea, productive cough or non-productive cough GI: Denies: abdominal pain, nausea, vomiting or diarrhea : Denies: flank pain, dysuria or vaginal discharge Musc: Denies: extremity pain Skin/Breast: Denies: rash or pruritus Neuro: Denies: headache(s) or confusion PFSH ED PFSH: Medical History Abdominal pain Actinic keratoses Allergic dermatitis Blood in stool Breast cancer screening by mammogram Colon cancer Colon cancer metastasized to liver Elevated liver enzymes Fatigue GERD (gastroesophageal reflux disease) Hypertension screen Medication management Medication management Right shoulder strain Vitamin D deficiency Well woman exam with routine gynecological exam Family History Mother Diabetes Hypertension Father Diabetes Social History Smoking and tobacco status: never smoked Alcohol intake: current History of recent travel: No Female Reproductive History: Date of last menstrual period: 07/24/20 Para: 3 Physical Exam Const: COMMON NORMALS: no acute distress GENERAL APPEARANCE: cooperative and comfortable ORIENTATION/CONSCIOUSNESS: Yes awake, Yes oriented to person, Yes oriented to place and Yes oriented to time HENMT: COMMON NORMALS: normocephalic, atraumatic and hearing grossly normal bilaterally HEAD & SCALP: normocephalic and atraumatic Neck/C-Spine: COMMON NORMALS: no JVD Resp: COMMON NORMALS: normal respiratory effort, No retractions, No use of accessory muscles and clear to auscultation bilaterally AUSCULTATION: clear to auscultation bilaterally Cardio: COMMON NORMALS: no JVD, regular rate, regular rhythm and No murmurs present (Cardio) RATE: regular rate RHYTHM: regular rhythm GI: COMMON NORMALS: Soft to palpation and No hepatosplenomegaly present AUSCULTATION: Yes normoactive bowel sounds PALPATION: Yes Soft to palpation, No Tenderness to palpation present (GI), No Guarding due to palpation present (GI) and Yes No hepatosplenomegaly present Extremity: COMMON NORMALS: normal to inspection, capillary refill normal, no clubbing, cyanosis or edema, no calf tenderness and no pedal edema Neuro: SENSORIUM/ORIENTATION: Yes oriented to person, Yes oriented to place and Yes oriented to time Skin: COMMON NORMALS: no rashes or lesions noted GENERAL SKIN EXAM: no rashes or lesions noted Course Vital Signs: Vital signs: Vital Signs Temperature 98.0 F 11/07/20 09:29 Pulse Rate 98 11/07/20 12:28 Respiratory Rate 20 H 11/07/20 12:28 Pulse Oximetry 99 11/07/20 12:28 MDM - Fever MDM Narrative: Medical decision making narrative: Discussed with her oncologist from [place]. We did do ultrasound the gallbladder and a CT of the abdomen no significant findings made suspect this may be related to her tumor which causing the fever. We do have cultures we will start her on Levaquin and have her follow-up with her oncology team next week copies of her CT is given she has any worsening or change symptoms return. Lab Data: Labs: Lab Results 11/07/20 11/07/20 11/07/20 Range/Units 06:52 06:52 06:52 WBC 13.8 H (4.0-10.0) 10^3/ uL RBC 3.92 L (4.1-5.3) 10^6/u L Hgb 9.8 L (11.5-15.3) g/dL Hct 32.3 L (37.0-47.0) % MCV 82.4 (81-99) fL MCH 25.0 L (28.0-34.0) pg MCHC 30.3 (30.0-36.0) g/dL RDW 18.9 H (12.1-15.1) % Plt Count 224 (130-400) 10^3/c mm MPV 10.9 H (7.4-10.4) fL Neut % (Auto) 66.8 % Lymph % (Auto) 11.2 % [place] % (Auto) 13.4 % Eos % (Auto) 0.9 % Baso % (Auto) 0.7 % Neut # (Auto) 9.22 H (1.8-7.7) 10^3/u L Lymph # (Auto) 1.5 (0.8-4.8) 10^3/u L [place] # (Auto) 1.9 H (0.2-0.9) 10^3/u L Eos # (Auto) 0.1 (0.0-0.8) 10^3/u L Baso # (Auto) 0.1 (0.0-0.1) 10^3/u L Nucleated RBC % (a uto) 0 % Nucleated RBCs # 0.0 /100WBC Sodium 133 L (136-145) mmol/L Potassium 4.4 (3.5-5.1) mmol/L Chloride 96 L (98-107) mmol/L Carbon Dioxide 26 (22-29) mmol/L Anion Gap 15.4 (5-19) BUN 7 (6-20) mg/dL Creatinine 0.5 (0.5-0.9) mg/dL GFR Calculation 131.7 H (90-130) mL/min Glucose 109 (65-115) mg/dL Calculated Osmolal ity 275 L (285-295) mOsm/k g Lactic Acid 1.1 (0.5-2.2) mmol/L Calcium 9.2 (8.5-10.5) mg/dL Magnesium 1.7 (1.7-2.3) mg/dL Total Bilirubin 0.7 (0.15-1.2) mg/dL AST 56 H (0-32) U/L ALT 34 H (0-33) U/L Alkaline Phosphata se 288 H (35-105) IU/L Creatine Kinase 52 (26-192) U/L Total Protein 6.5 L (6.6-8.7) g/dL Albumin 3.6 (3.5-5.2) g/dL Globulin 2.9 (1.3-4.6) g/dL Urine Color (Yellow) Urine Appearance (CLEAR) Urine pH (5-7) Ur Specific Gravit y (1.005-1.030) Urine Protein (Negative) Urine Glucose (UA) (Normal) Urine Ketones (Negative) Urine Blood (Negative) Urine Nitrate (Negative) Urine Bilirubin (Negative) Prot Sulfosalicyli c Acd (Negative) Urine Urobilinogen (Negative) mg/dL Ur Leukocyte Kamala ase (Negative) Urine RBC (0-2) /hpf Urine WBC (0-5) /hpf Ur Squamous Epith Cells (0-5) /hpf Amorphous Sediment Urine Bacteria (NONE) /hpf Urine Yeast /hpf 11/07/20 Range/Units 07:21 WBC (4.0-10.0) 10^3/ uL RBC (4.1-5.3) 10^6/u L Hgb (11.5-15.3) g/dL Hct (37.0-47.0) % MCV (81-99) fL MCH (28.0-34.0) pg MCHC (30.0-36.0) g/dL RDW (12.1-15.1) % Plt Count (130-400) 10^3/c mm MPV (7.4-10.4) fL Neut % (Auto) % Lymph % (Auto) % [place] % (Auto) % Eos % (Auto) % Baso % (Auto) % Neut # (Auto) (1.8-7.7) 10^3/u L Lymph # (Auto) (0.8-4.8) 10^3/u L [place] # (Auto) (0.2-0.9) 10^3/u L Eos # (Auto) (0.0-0.8) 10^3/u L Baso # (Auto) (0.0-0.1) 10^3/u L Nucleated RBC % (a uto) % Nucleated RBCs # /100WBC Sodium (136-145) mmol/L Potassium (3.5-5.1) mmol/L Chloride (98-107) mmol/L Carbon Dioxide (22-29) mmol/L Anion Gap (5-19) BUN (6-20) mg/dL Creatinine (0.5-0.9) mg/dL GFR Calculation (90-130) mL/min Glucose (65-115) mg/dL Calculated Osmolal ity (285-295) mOsm/k g Lactic Acid (0.5-2.2) mmol/L Calcium (8.5-10.5) mg/dL Magnesium (1.7-2.3) mg/dL Total Bilirubin (0.15-1.2) mg/dL AST (0-32) U/L ALT (0-33) U/L Alkaline Phosphata se (35-105) IU/L Creatine Kinase (26-192) U/L Total Protein (6.6-8.7) g/dL Albumin (3.5-5.2) g/dL Globulin (1.3-4.6) g/dL Urine Color Yellow (Yellow) Urine Appearance Sl hazy (CLEAR) Urine pH 8 H (5-7) Ur Specific Gravit y 1.005 (1.005-1.030) Urine Protein Neg (Negative) Urine Glucose (UA) Norm (Normal) Urine Ketones Negative (Negative) Urine Blood Neg (Negative) Urine Nitrate Negative (Negative) Urine Bilirubin Neg (Negative) Prot Sulfosalicyli c Acd Negative (Negative) Urine Urobilinogen Norm (Negative) mg/dL Ur Leukocyte Kamala ase Negative (Negative) Urine RBC Rare (0-2) /hpf Urine WBC 0-4 H (0-5) /hpf Ur Squamous Epith Cells 15-25 H (0-5) /hpf Amorphous Sediment Not Reportable Urine Bacteria Trace (NONE) /hpf Urine Yeast 1+ H /hpf Discharge Plan Discharge Patient Disposition: Home Clinical Impression: Colon cancer metastasized to liver Condition: Stable Prescriptions: New levofloxacin 750 mg tablet 750 mg PO DAILY 7 Days RF: 0 No Action Senna-S 8.6-50 mg Tablet 1 tab-cap PO DAILY PRN (Reason: Constipation) RF: 0 dexamethasone 4 mg tablet See Rx Instructions .ROUTE .COMPLEX RF: 0 Xarelto 20 mg Tablet 20 mg PO DAILY RF: 0 Zarxio 300 mcg/0.5 mL Syringe See Rx Instructions .ROUTE .COMPLEX RF: 0 Discharge Orders: Discharge ED (Routine); Ordered 11/07/20 Ordered By: Gomez Nguyen Referrals: LOUIS Cabrera, [employer] [Primary Care Provider] - Discharge Diet: As Directed Discharge Activity: Increase activity as tolerated Activity Restrictions/Additional Instructions: Return if you have any further problems follow-up with your oncologist and [place] as soon as you are able. Coding Level of Care Code ED Associate Programmer Analyst for Chg Fwd Exam Comprehensive
[2020-11-07 07:23] LABS: Alanine Aminotransferase 34 U/L (0-33); Albumin Level 3.6 g/dL (3.5-5.2); Alkaline Phosphatase 288 IU/L (35-105); Aspartate Amino Transferase 56 U/L (0-32); Blood Urea Nitrogen 7 mg/dL (6-20); Calcium 9.2 mg/dL (8.5-10.5); Carbon Dioxide 26 mmol/L (22-29); Chloride 96 mmol/L (98-107); Creatine Phosphokinase 52 U/L (26-192); Creatinine Clr Calc Pharmacy 149.3403; Globulin 2.9 g/dL (1.3-4.6); Glomerular Filtration Rate 131.7 mL/min (90-130); Glucose 109 mg/dL (65-115); Magnesium 1.7 mg/dL (1.7-2.3); Osmolality Calculated 275 mOsm/kg (285-295); Sodium 133 mmol/L (136-145); Total Bilirubin 0.7 mg/dL (0.15-1.2); Total Protein 6.5 g/dL (6.6-8.7)
[2020-11-07 07:24] LABS: Lactic Sepsis W/Reflex 1.1 mmol/L (0.5-2.2)
[2020-11-07 07:27] LABS: Anion Gap 15.4 (5-19); Potassium 4.4 mmol/L (3.5-5.1)
[2020-11-07 07:34] LABS: Urine Appearance SL Hazy (CLEAR); Urine Color Yellow (Yellow); pH Urine 8 (5-7)
[2020-11-07 07:35] LABS: Add Urine Microscopic? YES; Bacteria Urine TRACE /hpf; Bilirubin Urine Neg (Negative); Blood Urine Neg (Negative); Glucose Urine UA Norm (Normal); Ketones Urine Negative (Negative); Leukocyte Esterase Urine Negative (Negative); Nitrate Urine Negative (Negative); Protein Urine Neg (Negative); RBC Urine RARE /hpf (0-2); Specific Gravity, Urine 1.005 (1.005-1.030); Squamous Epithelial Cell Urine 15-25 /hpf (0-5); Sulfosalicylic Acid Urine Negative (Negative); Urobilinogen Urine Norm (Negative); WBC Urine 0-4 /hpf (0-5)
[2020-11-07 07:39] LABS: Add Urine Culture? No
[2020-11-07 07:46] LABS: Slide Review Slide Review Perform
[2020-11-07] MEDS: acetaminophen 325 mg Tablet 650 MG PO (07:57)
[2020-11-07 09:29] VITALS: TEMP 36.7
--- NOTE | 2020-11-07 10:00 | CT_ITS ---
WS: [id number] CT ABDOMEN AND PELVIS WITH CONTRAST HISTORY: Diffuse abdominal pain. History of metastatic disease to the liver. Colon cancer history. TECHNIQUE: Imaging performed of the abdomen and pelvis with IV contrast. Single phase imaging of the abdomen. Coronal and sagittal reformats are submitted. All CT scans at [facility] use at least one of these dose optimization techniques: automated exposure control; mA and/or kV adjustment per patient size (includes targeted exams where dose is matched to clinical indication); or iterativ e reconstruction. IV CONTRAST: Omnipaque 300; 95 mL IV. Oral contrast: No DLP: 579.92 mGy.cm COMPARISON: 10/31/2020 Lower thorax: Subsegmental atelectasis at the RIGHT lung base. There is a new small RIGHT pleural eff usion. Heart is normal size. No hiatal hernia. Liver/biliary system: Liver is moderately enlarged. There are innumerable diffuse metastatic lesions throughout the liver. There is no bile duct dilatation. There is also subcapsular fluid over the RIGH T lobe of the liver. Subcapsular fluid is new. Gallbladder: Normal. No gallstones or wall thickening. No pericholecystic fluid. Pancreas: Normal. Spleen: Spleen is mildly enlarged at 13.5 cm which is unchanged. Adrenal glands: Normal. Right kidney: Normal. Left kidney: Normal. Aorta: Normal. Lymphadenopathy: None. Free fluid: There is a small amount of free fluid within the pelvis. This fluid has increased since . GI tract: Again noted is the wall thickening and stricture involving the descending and sigmoid colon . There is significant wall thickening with enhancement. The lumen is markedly narrowed. There is adj acent tethering of small bowel loops with edema or tumor infiltrating the adjacent mesentery. Normal pancreas. Abdominal wall: Unremarkable abdominal wall. No hernia. Pelvis: Normal size uterus. Free fluid in the pelvis more than physiologic. Normally distended bladde r. Bones: Unremarkable. CT/CT abdomen pelvis w con* [id number] IMPRESSION: 1. Patient has known diffuse, innumerable metastatic lesions in the liver. 2. New subcapsular hepatic fluid. 3. New small RIGHT pleural effusion. 4. Small but increasing free fluid in the pelvis. 5. Increasing enhancing colonic lesion near the descending colon sigmoid junct ion with increasing mesenteric edema or infiltrating soft tissue tumor. Notified Gomez Nguyen DO at 11/07/2020 10:49 AM.0
--- NOTE | 2020-11-07 10:09 | US_ITS ---
WS: [id number] RIGHT UPPER QUADRANT ULTRASOUND HISTORY: elevated LFTs, colon ca w hepatic mets COMPARISON: 08/14/2020 Liver: 19.5 cm in length. Moderately enlarged liver. There are diffuse hepatic metastatic lesions. Il l-defined areas of variable echogenicity. Metastatic lesions are best seen by CT. No bile duct dilata tion. Gallbladder: Normally distended gallbladder. Mild gallbladder wall thickening up to 4.6 mm. No perich olecystic fluid. CBD: 0.3 cm Pancreas: Partially visualized. No abnormality identified. Right kidney: 11.3 cm in length. Normal size and echogenicity. No hydronephrosis or mass. Aorta and IVC: Unremarkable abdominal aorta and IVC. No ascites. US/US gall bladder [id number] IMPRESSION: 1. Gallbladder wall thickening is probably related to hepatocellular disease. No cholelithiasis. 2. Diffuse hepatic metastatic disease. 3. No bile duct dilatation.
--- NOTE | 2020-11-07 10:27 | PC.NURSE ---
patient taken to ct on stretcher
[2020-11-07] MEDS: iohexol 300 mg/mL 100 mL Btl IV (10:33)
--- NOTE | 2020-11-07 11:14 | PC.NURSE ---
patient returned from ct and will get an ultrasound
[2020-11-07 12:28] VITALS: PULSE 98; RESP 20; O2SAT 99
== END 2020-11-07 12:29 | disposition home or self-care (01) ==
PROVIDERS: Emergency Provider Family Medicine; PCP Nurse Practitioner Family
DX: C18.9 Malignant neoplasm of colon, unspecified (principal); C78.7 Secondary malignant neoplasm of liver and intrahepatic bile duct; I10 Essential (primary) hypertension
CPT/HCPCS: 12345; 71045; 74177; 76705; 80053; 81001; 82550; 83605; 83735; 85025; 87040; 99282; 99283; Q9967

== ENCOUNTER 2020-11-11 06:04 | Outpatient (CLI) | payer BC, SELFPAY ==
[2020-11-11 09:53] LABS: Basophils # 0.1 10^3/uL (0.0-0.1); Basophils % 0.6 %; Eosinophils # 0.2 10^3/uL (0.0-0.8); Eosinophils % 1.5 %; Hematocrit 28.4 % (37.0-47.0); Hemoglobin 8.4 g/dL (11.5-15.3); Lymphocytes # 1.3 10^3/uL (0.8-4.8); Lymphocytes % 13.1 %; Mean Corpuscular HGB Conc 29.6 g/dL (30.0-36.0); Mean Corpuscular Hemoglobin 24.8 pg (28.0-34.0); Mean Corpuscular Volume 83.8 fL (81-99); Monocytes # 0.7 10^3/uL (0.2-0.9); Monocytes % 7.1 %; Neutrophils # 7.37 10^3/uL (1.8-7.7); Neutrophils % 74.2 %; Nucleated Red Blood Cells % 0 %; Platelet Count 384 10^3/cmm (130-400); Red Blood Count 3.39 10^6/uL (4.1-5.3); Red Cell Distribution Width 18.9 % (12.1-15.1); White Blood Count 9.9 10^3/uL (4.0-10.0)
[2020-11-11 11:58] LABS: Alanine Aminotransferase 32 U/L (0-33); Albumin Level 3.2 g/dL (3.5-5.2); Alkaline Phosphatase 330 IU/L (35-105); Anion Gap 16.8 (5-19); Aspartate Amino Transferase 48 U/L (0-32); Blood Urea Nitrogen 8 mg/dL (6-20); Calcium 9.7 mg/dL (8.5-10.5); Carbon Dioxide 25 mmol/L (22-29); Chloride 101 mmol/L (98-107); Globulin 3.9 g/dL (1.3-4.6); Glomerular Filtration Rate 131.7 mL/min (90-130); Glucose 124 mg/dL (65-115); Osmolality Calculated 288 mOsm/kg (285-295); Potassium 3.8 mmol/L (3.5-5.1); Sodium 139 mmol/L (136-145); Total Bilirubin 0.4 mg/dL (0.15-1.2); Total Protein 7.1 g/dL (6.6-8.7)
[2020-11-12 14:55] LABS: Iron 41 ug/dL (37-145); Percent Saturation 17.6 % (20-50); Total Iron Binding Capacity 232 mcg/dl; Unsaturated Iron Binding 191 ug/dL (112-347)
== END 2020-11-11 06:05 | disposition home or self-care (01) ==
LOC: ONCMED 06:06
PROVIDERS: PCP Nurse Practitioner Family; Visit Provider Internal Medicine Medical Oncology
DX: C18.6 Malignant neoplasm of descending colon (principal); C78.7 Secondary malignant neoplasm of liver and intrahepatic bile duct
CPT/HCPCS: 36591; 80053; 82378; 83540; 83550; 85025

== ENCOUNTER 2020-12-09 09:27 | Outpatient (CLI) | payer BC, SELFPAY ==
[2020-12-09 10:02] LABS: Basophils # 0.1 10^3/uL (0.0-0.1); Basophils % 0.7 %; Eosinophils # 0.1 10^3/uL (0.0-0.8); Eosinophils % 1.2 %; Hematocrit 28.8 % (37.0-47.0); Hemoglobin 8.6 g/dL (11.5-15.3); Lymphocytes % 11.5 %; Mean Corpuscular HGB Conc 29.9 g/dL (30.0-36.0); Mean Corpuscular Hemoglobin 25.4 pg (28.0-34.0); Mean Corpuscular Volume 85.2 fL (81-99); Mean Platelet Volume 8.7 fL (7.4-10.4); Monocytes # 0.6 10^3/uL (0.2-0.9); Monocytes % 6.7 %; Neutrophils # 7.02 10^3/uL (1.8-7.7); Neutrophils % 79.6 %; Nucleated Red Blood Cells % 0 %; Platelet Count 290 10^3/cmm (130-400); Red Blood Count 3.38 10^6/uL (4.1-5.3); Red Cell Distribution Width 18.3 % (12.1-15.1); White Blood Count 8.8 10^3/uL (4.0-10.0)
[2020-12-09 10:37] LABS: Alanine Aminotransferase 38 U/L (0-33); Albumin Level 3.6 g/dL (3.5-5.2); Alkaline Phosphatase 397 IU/L (35-105); Aspartate Amino Transferase 41 U/L (0-32); Blood Urea Nitrogen 10 mg/dL (6-20); Calcium 9.6 mg/dL (8.5-10.5); Carbon Dioxide 27 mmol/L (22-29); Chloride 103 mmol/L (98-107); Globulin 3.4 g/dL (1.3-4.6); Glomerular Filtration Rate 169.7 mL/min (90-130); Glucose 88 mg/dL (65-115); Osmolality Calculated 288 mOsm/kg (285-295); Sodium 140 mmol/L (136-145); Total Bilirubin 0.4 mg/dL (0.15-1.2)
== END 2020-12-09 09:28 | disposition home or self-care (01) ==
LOC: ONCMED 09:28
PROVIDERS: PCP Nurse Practitioner Family; Visit Provider Internal Medicine Medical Oncology
DX: C18.6 Malignant neoplasm of descending colon (principal); C78.7 Secondary malignant neoplasm of liver and intrahepatic bile duct
CPT/HCPCS: 36591; 80053; 82378; 85025

== ENCOUNTER 2021-03-13 07:54 | Outpatient (CLI) | payer BC, SELFPAY ==
[2021-03-13] VITALS (11 sets, daily range): BP systolic 97–115; BP diastolic 62–80; PULSE 88–101; RESP 18; TEMP 36.1–36.5; O2SAT 100; BMI 21.5
--- NOTE | 2021-03-13 09:20 | US_ITS ---
WS: [id number] Abdominal ultrasound, limited. History: Evaluate for ascites. Comparison: None. All 4 quadrants are imaged by ultrasound to evaluate for ascites. Large amount of ascites in all 4 qu adrants. US/US abdomen lmt fluid [id number] IMPRESSION: Large amount of ascites.
[2021-03-13 10:10] LABS: Hematocrit 26.3 % (37.0-47.0); Hemoglobin 7.8 g/dL (11.5-15.3)
[2021-03-13 11:19] LABS: Body Fluid Polynuclear #Cells 0.003; Body Fluid WBC 31 /uL; Monocytes # Body Fluid 0.028; RBC, Body Fluid 0 10^3/uL
--- NOTE | 2021-03-13 11:51 | PM.ACPR ---
Acute Procedures Paracentesis: Time out performed: Yes Indication: Ascites Procedure: therapeutic paracentesis Location: RLQ Local anesthetic used: lidocaine 2% and with Epi Amount of anesthesia used (ml): 10 Bedside ultrasound used: yes, Ascites confirmed and location marked Preparation: sterile prep and drape Amount of fluid obtained (ml): 5,500 Fluid: clear Post procedure exam: awake, alert, normal BP, normal HR and normal SpO2 Patient tolerated procedure: no complications Complications: none
[2021-03-13 12:01] LABS: Apprearance, Body Fluid CLEAR; Color, Body Fluid COLORLESS
[2021-03-13 12:02] LABS: Albumin Body Fluid 0.6 g/dL; Amylase Body Fluid 20 U/L; Cholesterol Body Fluid 20 mg/dL (0-200); Fluid Alkaline Phos. 65 IU/L; LDH Body Fluid 45 U/L; Triglycerides Body Fluid 21 mg/dL (0-150); Uric Acid Body Fluid 6 mg/dL
[2021-03-13 12:33] LABS: PATH Referral YES
== END 2021-03-13 07:55 | disposition home or self-care (01) ==
LOC: OPS 07:57 → GILAB 08:19
PROVIDERS: Internal Medicine; PCP Nurse Practitioner Family; Visit Provider Internal Medicine Medical Oncology
DX: R18.8 Other ascites (principal)
CPT/HCPCS: 36415; 36430; 49082; 76705; 80500; 82042; 82150; 82465; 82945; 83615; 83986; 84075; 84157; 84315; 84478; 84560; 85014; 85018; 86850; 86900; 86920; 87015; 87070; 87075; 87116; 87205; 87206; 87801; 88112; 88305; 89050; P9016

== ENCOUNTER 2021-03-15 21:08 | Emergency (ER) | payer BC, SELFPAY ==
[2021-03-15 21:22] VITALS: BP 92/65; PULSE 106; RESP 16; TEMP 36.7; O2SAT 99; BMI 19.8
--- NOTE | 2021-03-16 00:56 | CTR_ITS ---
PROCEDURE INFORMATION: Exam: CT Abdomen And Pelvis With Contrast Exam date and time: 03/16/2021 1:35 AM Age: 50 years old Clinical indication: Abdominal pain; Generalized; Additional info: Gi bleeding, CA patient TECHNIQUE: Imaging protocol: Computed tomography of the abdomen and pelvis with contrast. Radiation optimization: All CT scans at this facility use at least one of these dose optimization techniques: automated exposure control; mA and/or kV adjustment per patient size (includes targeted exams where dose is matched to clinical indication); or iterative reconstruction. Contrast material: OMNI 300; Contrast volume: 95 ml; Contrast route: INTRAVENOUS (IV); COMPARISON: 1. CT abdomen pelvis w con* [id number] 2020-10-31 22:[address] chest abd pel w con* 2020-08-15 12:14 RADIATION DOSE METRICS: Total DLP (mGy-cm): 1371.92 FINDINGS: Mediastinal space: Paraesophageal and esophageal varices. Liver: Innumerable liver masses. Liver is more infiltrated than previous and more shrunk in with a lobular contour. Energy Control Officer liver mass on series 2, image 20 measures 3 cm, previously 2.9 cm. Gallbladder and bile ducts: Normal. No calcified stones. No ductal dilation. Pancreas: Normal. No ductal dilation. Spleen: Small low attenuating area in the medial spleen on image 23 could be a tiny splenic infarct or other splenic lesion. Splenomegaly. Adrenal glands: Normal. No mass. Kidneys and ureters: Normal. No hydronephrosis. Stomach and bowel: Diffuse bowel wall thickening, and associated enhancement. Transverse left upper abdominal colostomy. There appears to be some scarring associated with bowel loops in the central lower abdomen on series 2, image 64 with some adhesions. Interval sigmoid bowel segment resection with double bore colostomy. Appendix: No evidence of appendicitis. Intraperitoneal space: Recanalized falciform ligament. Large volume abdominal ascites. Vasculature: Gastrohepatic varices. Mesenteric varices. Evidence for portal hypertension. Suspect related to portal hypertension, or enteritis. Lymph nodes: Unremarkable. No enlarged lymph nodes. Urinary bladder: Unremarkable as visualized. Reproductive: Unremarkable as visualized. Bones/joints: Scattered small sclerotic bone lesions in the iliacs, are unchanged in likely bone islands. Soft tissues: Unremarkable. CT/CT abdomen pelvis w con* [id number] IMPRESSION: 1. Innumerable liver masses. Liver is more infiltrated than previous and more shrunk with a lobular contour. Energy Control Officer liver mass on series 2, image 20 measures 3 cm, previously 2.9 cm. Suggests progressing liver dysfunction secondary to metastases. 2. Paraesophageal and esophageal varices. Gastrohepatic varices. Mesenteric varices. Recanalized falciform ligament. Evidence for portal hypertension. 3. Small low attenuating area in the medial spleen on image 23 could be a tiny splenic infarct or other splenic lesion. 4. Diffuse bowel wall thickening, and associated enhancement. Suspect related to portal hypertension, or enteritis. 5. Large volume abdominal ascites. Radiation Dose CTDIVOL = (mGy): DLP = 1371.92 (mGy-cm)
[2021-03-16 01:13] LABS: Basophils % 0.3 %; Eosinophils # 0.1 10^3/uL (0.0-0.8); Hematocrit 35.4 % (37.0-47.0); Hemoglobin 10.8 g/dL (11.5-15.3); Lymphocytes # 1.1 10^3/uL (0.8-4.8); Lymphocytes % 11.8 %; Mean Corpuscular HGB Conc 30.5 g/dL (30.0-36.0); Mean Corpuscular Hemoglobin 26.2 pg (28.0-34.0); Mean Corpuscular Volume 85.9 fL (81-99); Mean Platelet Volume 9.1 fL (7.4-10.4); Monocytes # 0.1 10^3/uL (0.2-0.9); Monocytes % 0.5 %; Neutrophils # 8.23 10^3/uL (1.8-7.7); Nucleated Red Blood Cells % 0 %; Platelet Count 216 10^3/cmm (130-400); Red Blood Count 4.12 10^6/uL (4.1-5.3); Red Cell Distribution Width 20.1 % (12.1-15.1); White Blood Count 9.6 10^3/uL (4.0-10.0)
[2021-03-16 01:19] LABS: INR 2.87 (0.8-1.2)
[2021-03-16 01:20] LABS: Partial Thromboplastin Time 48.8 SECONDS (23.9-36.7)
[2021-03-16 01:25] LABS: Alanine Aminotransferase 19 U/L (0-33); Albumin Level 2.5 g/dL (3.5-5.2); Alkaline Phosphatase 491 IU/L (35-105); Anion Gap 13.7 (5-19); Aspartate Amino Transferase 21 U/L (0-32); Blood Urea Nitrogen 18 mg/dL (6-20); Calcium 7.9 mg/dL (8.5-10.5); Carbon Dioxide 21 mmol/L (22-29); Chloride 103 mmol/L (98-107); Globulin 2.2 g/dL (1.3-4.6); Glomerular Filtration Rate 131.1 mL/min (90-130); Glucose 151 mg/dL (65-115); Osmolality Calculated 283 mOsm/kg (285-295); Potassium 3.7 mmol/L (3.5-5.1); Sodium 134 mmol/L (136-145); Total Bilirubin 0.7 mg/dL (0.15-1.2); Total Protein 4.7 g/dL (6.6-8.7)
[2021-03-16 01:26] LABS: Lactate (Lactic Acid level) 1.2 mmol/L (0.5-2.2)
[2021-03-16] MEDS: iohexol 300 mg/mL 100 mL Btl IV (01:58)
[2021-03-16 02:14] VITALS: BP 101/69; PULSE 96; RESP 18; O2SAT 100
[2021-03-16] MEDS: ondansetron 2 mg/ML SDV 2 mL 4 MG IVP (02:31)
[2021-03-16] MEDS: fentaNYL 50 mcg/mL INJ 2mL 75 MCG IVP (02:32)
[2021-03-16 02:34] VITALS: BP 99/69; PULSE 94; RESP 18; O2SAT 100
[2021-03-16 04:19] VITALS: BP 95/65; RESP 16; O2SAT 99
--- NOTE | 2021-03-16 04:19 | W.ED.GIBLEED ---
HPI - GI Bleed General: Chief complaint: GI Bleed Stated complaint: CANCER PT; BLOOD IN STOOL Time Seen by Provider: 03/16/21 00:28 History of Present Illness: HPI Narrative: 50-year-old female with a history of colon cancer. She has an ostomy. She is actively undergoing chemotherapy. Her oncologist is at [facility] in [place]. She was transfused for low hemoglobin on she has experienced a couple of nosebleeds recently. Tonight, her and her noticed some bright red blood in her ostomy bag. This was followed the next change by some coffee-ground looking stool as well. She is having some pressure in the abdomen. On she also had a 6 L paracentesis. She notes that a lot of the fluid has returned. She has a procedure scheduled on Tuesday for drain placement in [place] the blood concerned them, so they came for evaluation after speaking with the oncologist vanstone machine operator complaint: gross hematochezia Onset (ago): hour(s) Pain Consistency: constant Severity: mild Relieving factors: none Exacerbating factors: none Context: liver disease and known esophageal varices Associated symptoms: Reports abdominal pain, epistaxis and nausea; Denies chills, fever(s), headache(s), rash or vomiting Review of Systems Const: Denies: fever(s) or chills Eyes: Denies: change in vision ENMT: Reports: epistaxis Card: Denies: chest pain or palpitations Resp: Denies: dyspnea, productive cough, non-productive cough or wheezing GI: Reports: abdominal pain and nausea; Denies: vomiting : Denies: dysuria or hematuria Musc: Denies: neck pain or joint warmth Skin/Breast: Denies: rash Neuro: Denies: headache(s) Psych: Denies: anxiety PFSH ED PFSH: Medical History Abdominal pain Actinic keratoses Allergic dermatitis Blood in stool Breast cancer screening by mammogram Colon cancer Colon cancer metastasized to liver Elevated liver enzymes Fatigue GERD (gastroesophageal reflux disease) Hypertension screen Medication management Medication management Right shoulder strain Vitamin D deficiency Well woman exam with routine gynecological exam Family History Mother Diabetes Hypertension Father Diabetes Social History Smoking and tobacco status: never smoked Alcohol intake: current History of recent travel: No Female Reproductive History: Date of last menstrual period: 07/17/21 Para: 3 Physical Exam Const: GENERAL APPEARANCE: well developed ORIENTATION/CONSCIOUSNESS: Yes oriented to person, Yes oriented to place and Yes oriented to time HENMT: COMMON NORMALS: normocephalic, external ears normal and Normal external nose present HEAD & SCALP: normocephalic FACE & SINUS: normal facial exam NOSE: Normal external nose present and No nasal discharge present EXTERNAL EAR: Yes external ears normal Eye: COMMON NORMALS: Equal, round and reactive pupils present, EOMs intact bilaterally and conjunctivae normal EYELID: eyelids normal CONJUNCTIVA: Yes conjunctivae normal PUPIL: Yes Equal, round and reactive pupils present Neck/C-Spine: COMMON NORMALS: full ROM Chest: COMMONS NORMALS: normal inspection of the chest CHEST: No tenderness Resp: COMMON NORMALS: clear to auscultation bilaterally EFFORT & INSPECTION: No tachypneic, No respiratory distress, No retractions, No uses accessory muscles and No tracheal deviation AUSCULTATION: clear to auscultation bilaterally, no rhonchi, no wheezes and lung sounds not diminished Cardio: COMMON NORMALS: regular rate and regular rhythm RATE: regular rate RHYTHM: regular rhythm HEART SOUNDS: no murmurs PERIPHERAL PULSES: radial pulses present GI: INSPECTION: Yes abdominal distension AUSCULTATION: No Hyperactive bowel sounds present and No Hypoactive bowel sounds present PALPATION: Yes Tenderness to palpation present (GI) (Mild diffuse), No Guarding due to palpation present (GI) and No Rigid due to palpation PERCUSSION: dullness to percussion and no tympanic to percussion Neuro: SENSORIUM/ORIENTATION: Yes oriented to person, Yes oriented to place and Yes oriented to time Psych: COMMON NORMALS: mental status grossly normal Skin: COMMON NORMALS: no rashes or lesions noted GENERAL SKIN EXAM: no rashes or lesions noted Course Consultations: Consultation #1: Sonny, vanstone machine operator Oncology [facility] Time: 04:19 Vital Signs: Vital signs: Vital Signs Temperature 98.1 F 03/15/21 21:22 Pulse Rate 93 03/16/21 04:50 Respiratory Rate 17 03/16/21 04:50 Blood Pressure 92/65 03/16/21 04:50 Pulse Oximetry 99 03/16/21 04:50 MDM - GI Bleed MDM Narrative: Medical decision making narrative: Hemoglobin is 10.8, which is an appropriate response to 2 units 3 days ago. Her white blood cell count is 9.6. Her INR, however, is 2.87. 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 This is concerning his Xarelto should not raise the INR that much. On CT, the clot is not seen. With evidence of GI hemorrhage, however minor, nosebleeds, history of needing transfusions, esophageal varices, I believe anticoagulation is risky. I discussed this with the senior process engineer/oncologist on-call, and we agree that it should be stopped. She will go ahead and have her valuation for procedure on Tuesday, and curiously she was told to stop her Xarelto today anyway. They will monitor for further bleeding, and return for significant bleeding in the meantime. Lab Data: Labs: Lab Results 03/16/21 03/16/21 03/16/21 Range/Units 00:51 00:51 00:51 WBC 9.6 (4.0-10.0) 10^3/ uL RBC 4.12 (4.1-5.3) 10^6/u L Hgb 10.8 L (11.5-15.3) g/dL Hct 35.4 L (37.0-47.0) % MCV 85.9 (81-99) fL MCH 26.2 L (28.0-34.0) pg MCHC 30.5 (30.0-36.0) g/dL RDW 20.1 H (12.1-15.1) % Plt Count 216 (130-400) 10^3/c mm MPV 9.1 (7.4-10.4) fL Neut % (Auto) 86.0 % Lymph % (Auto) 11.8 % [place] % (Auto) 0.5 % Eos % (Auto) 1.0 % Baso % (Auto) 0.3 % Neut # (Auto) 8.23 H (1.8-7.7) 10^3/u L Lymph # (Auto) 1.1 (0.8-4.8) 10^3/u L [place] # (Auto) 0.1 L (0.2-0.9) 10^3/u L Eos # (Auto) 0.1 (0.0-0.8) 10^3/u L Baso # (Auto) 0.0 (0.0-0.1) 10^3/u L Nucleated RBC % (a uto) 0 % Nucleated RBCs # 0.0 /100WBC PT 30.60 H (12.1-14.9) SECO NDS INR 2.87 H (0.8-1.2) APTT 48.8 H (23.9-36.7) SECO NDS Sodium 134 L (136-145) mmol/L Potassium 3.7 (3.5-5.1) mmol/L Chloride 103 (98-107) mmol/L Carbon Dioxide 21 L (22-29) mmol/L Anion Gap 13.7 (5-19) BUN 18 (6-20) mg/dL Creatinine 0.5 (0.5-0.9) mg/dL GFR Calculation 131.1 H (90-130) mL/min Glucose 151 H (65-115) mg/dL Calculated Osmolal ity 283 L (285-295) mOsm/k g Lactate (0.5-2.2) mmol/L Calcium 7.9 L (8.5-10.5) mg/dL Total Bilirubin 0.7 (0.15-1.2) mg/dL AST 21 (0-32) U/L ALT 19 (0-33) U/L Alkaline Phosphata se 491 H (35-105) IU/L Total Protein 4.7 L (6.6-8.7) g/dL Albumin 2.5 L (3.5-5.2) g/dL Globulin 2.2 (1.3-4.6) g/dL 03/16/21 Range/Units 00:51 WBC (4.0-10.0) 10^3/ uL RBC (4.1-5.3) 10^6/u L Hgb (11.5-15.3) g/dL Hct (37.0-47.0) % MCV (81-99) fL MCH (28.0-34.0) pg MCHC (30.0-36.0) g/dL RDW (12.1-15.1) % Plt Count (130-400) 10^3/c mm MPV (7.4-10.4) fL Neut % (Auto) % Lymph % (Auto) % [place] % (Auto) % Eos % (Auto) % Baso % (Auto) % Neut # (Auto) (1.8-7.7) 10^3/u L Lymph # (Auto) (0.8-4.8) 10^3/u L [place] # (Auto) (0.2-0.9) 10^3/u L Eos # (Auto) (0.0-0.8) 10^3/u L Baso # (Auto) (0.0-0.1) 10^3/u L Nucleated RBC % (a uto) % Nucleated RBCs # /100WBC PT (12.1-14.9) SECO NDS INR (0.8-1.2) APTT (23.9-36.7) SECO NDS Sodium (136-145) mmol/L Potassium (3.5-5.1) mmol/L Chloride (98-107) mmol/L Carbon Dioxide (22-29) mmol/L Anion Gap (5-19) BUN (6-20) mg/dL Creatinine (0.5-0.9) mg/dL GFR Calculation (90-130) mL/min Glucose (65-115) mg/dL Calculated Osmolal ity (285-295) mOsm/k g Lactate 1.2 (0.5-2.2) mmol/L Calcium (8.5-10.5) mg/dL Total Bilirubin (0.15-1.2) mg/dL AST (0-32) U/L ALT (0-33) U/L Alkaline Phosphata se (35-105) IU/L Total Protein (6.6-8.7) g/dL Albumin (3.5-5.2) g/dL Globulin (1.3-4.6) g/dL Discharge Plan Discharge Patient Disposition: Home Clinical Impression: Lower gastrointestinal hemorrhage, Coagulopathy Condition: Stable Prescriptions: Discontinued Xarelto 20 mg Tablet 20 mg PO DAILY RF: 0 No Action sennosides-docusate sodium [Senna-S] 8.6-50 mg Tablet 1 tab-cap PO DAILY PRN (Reason: Constipation) RF: 0 dexamethasone 4 mg tablet See Rx Instructions .ROUTE .COMPLEX RF: 0 Zarxio 300 mcg/0.5 mL Syringe See Rx Instructions .ROUTE .COMPLEX RF: 0 ondansetron HCl [Zofran] 4 mg Tablet 4 mg PO Q6H PRN (Reason: Nausea) RF: 0 Discharge Orders: Discharge ED (Routine); Ordered 03/16/21 Ordered By: Jose Erazo Referrals: LOUIS Cabrera, JEWELER APPRENTICE [Primary Care Provider] - Activity Restrictions/Additional Instructions: Stop your Xarelto as we discussed. Follow-up for your procedure as scheduled. Return for return of or worsening bloody output in your bag. Return also for fever greater than 100, worsening pain, vomiting liquids or medications, any other concerning symptoms. Coding Level of Care Code ED Naval Architect Specialist for Gisela Brunner
[2021-03-16 04:50] VITALS: BP 92/65; PULSE 93; RESP 17; O2SAT 99
== END 2021-03-16 04:50 | disposition home or self-care (01) ==
PROVIDERS: Registered Nurse; Emergency Provider Emergency Medicine; PCP Nurse Practitioner Family
DX: K92.2 Gastrointestinal hemorrhage, unspecified (principal); D68.9 Coagulation defect, unspecified; Z85.038 Personal history of other malignant neoplasm of large intestine; Z85.05 Personal history of malignant neoplasm of liver
CPT/HCPCS: 74177; 80053; 82274; 83605; 83630; 85025; 85610; 85730; 87493; 87506; 96374; 96375; 99284; J2405; J3010; Q9967

== ENCOUNTER 2021-04-03 08:00 | Outpatient (CLI) | payer BC, SELFPAY ==
[2021-04-03] MEDS: sodium chloride 0.9% 1,000 mL Bolus 999 ML IV (08:55)
== END 2021-04-03 08:01 | disposition home or self-care (01) ==
PROVIDERS: PCP Nurse Practitioner Family; Visit Provider Internal Medicine Medical Oncology
DX: C18.7 Malignant neoplasm of sigmoid colon (principal); C78.7 Secondary malignant neoplasm of liver and intrahepatic bile duct; Z79.899 Other long term (current) drug therapy
CPT/HCPCS: 96360; J7030

== ENCOUNTER 2021-04-16 19:40 | Inpatient (IN) | payer BC, SELFPAY ==
[2021-04-16 19:47] VITALS: BP 74/57; PULSE 124; RESP 16; TEMP 38.4; O2SAT 100; BMI 18.1
--- NOTE | 2021-04-16 19:59 | XRR_ITS ---
PROCEDURE INFORMATION: Exam: XR Chest Exam date and time: 04/16/2021 7:59 PM Age: 50 years old Clinical indication: Prior surgery; Surgery type: Port; Patient HX: HX cancer, fever started 3am today TECHNIQUE: Imaging protocol: XR of the chest. Views: 1 view. COMPARISON: CR XR chest 1V portable [id number] 11/07/2020 6:38 AM FINDINGS: Tubes, catheters and devices: Right Gheort-W-Pyyn. Lungs: Unremarkable. No consolidation. Pleural spaces: Unremarkable. No pleural effusion. No pneumothorax. Heart/Mediastinum: Unremarkable. No cardiomegaly. Bones/joints: Unremarkable. XR/XR chest 1V portable [id number] IMPRESSION: No acute findings.
[2021-04-16 20:03] VITALS: BP 94/64; PULSE 115; RESP 18; O2SAT 100
--- NOTE | 2021-04-16 20:06 | ED_ITS ---
HPI - Nausea/Vomiting/Diarrhea General: Chief complaint: Nausea/Vomiting/Diarrhea Stated complaint: Fever\ Nausea Stage 4 Cancer Time Seen by Provider: 04/16/21 19:56 Source: patient Mode of arrival: ambulatory Limitations: no limitations History of Present Illness: HPI Narrative: 50-year-old female has a history of stage IV colon cancer with liver mets. She has had a colectomy and has a colostomy. She is currently on chemo and her last treatment was . States of last 2 days she has had severe nausea vomiting and diarrhea. States she had increasing temperature and temperature here is 101. She denies any abdominal pain. She also has a peritoneal drain for ascites. She denies any cough. Denies any worsening improving factors. Associated nausea: Yes Associated symtoms: Reports nausea; Denies chest pain, dysuria or headache(s) Review of Systems Const: Reports: fever(s) Eyes: Denies: blurry vision or eye discomfort ENMT: Denies: throat pain or dental pain Card: Denies: chest pain Resp: Denies: dyspnea GI: Reports: nausea, vomiting and diarrhea : Denies: dysuria Musc: Denies: neck pain or back pain Skin/Breast: Denies: rash Neuro: Denies: headache(s) Psych: Denies: depression Den/Lymph: Denies: easy bruising All/Imm: Denies: urticaria PFSH ED PFSH: Medical History Abdominal pain Actinic keratoses Allergic dermatitis Blood in stool Breast cancer screening by mammogram Colon cancer Colon cancer metastasized to liver Elevated liver enzymes Fatigue GERD (gastroesophageal reflux disease) Hypertension screen Medication management Medication management Right shoulder strain Vitamin D deficiency Well woman exam with routine gynecological exam Surgical History (Updated 04/16/21 @ 22:32 by Salma Moeller MD) H/O colonoscopy S/P skin biopsy Family History Mother Diabetes Hypertension Father Diabetes Social History Smoking and tobacco status: never smoked Alcohol intake: current History of recent travel: No Female Reproductive History: Date of last menstrual period: 07/17/21 Para: 3 Physical Exam Const: COMMON NORMALS: patient oriented x3 GENERAL APPEARANCE: ill appearing and frail appearing HENMT: COMMON NORMALS: normocephalic and atraumatic HEAD & SCALP: normocephalic and atraumatic Eye: COMMON NORMALS: Equal, round and reactive pupils present and EOMs intact bilaterally PUPIL: Yes Equal, round and reactive pupils present Neck/C-Spine: COMMON NORMALS: full ROM and supple Chest: COMMONS NORMALS: normal inspection of the chest and normal palpation of entire chest wall Resp: COMMON NORMALS: normal respiratory effort, No retractions, No use of accessory muscles and clear to auscultation bilaterally AUSCULTATION: clear to auscultation bilaterally Cardio: COMMON NORMALS: regular rhythm and No murmurs present (Cardio) RATE: tachycardic RHYTHM: regular rhythm GI: COMMON NORMALS: Normal to inspection, nondistended, normoactive bowel sounds present, Soft to palpation, non-tender and no masses PALPATION: Yes Soft to palpation Extremity: COMMON NORMALS: normal to inspection and full ROM Neuro: COMMON NORMALS: patient oriented x3, moves all extremities and no focal motor deficits Psych: COMMON NORMALS: mental status grossly normal, Normal thought process present and cooperative THOUGHT PROCESS: Normal thought process present Skin: COMMON NORMALS: no rashes or lesions noted and no wounds GENERAL SKIN EXAM: no rashes or lesions noted Course Vital Signs: Vital signs: Vital Signs Temperature 101.1 F H 04/16/21 19:47 Pulse Rate 103 H 04/16/21 21:22 Respiratory Rate 16 04/16/21 21:22 Blood Pressure 96/65 04/16/21 21:22 Pulse Oximetry 98 04/16/21 21:22 MDM - Nausea/Vomiting/Diarrhea MDM Narrative: Medical decision making narrative: Patient presents here with a neutropenic fever. Patient's blood pressure and heart rates improved greatly with IV fluids. Patient given IV antibiotics to and had blood cultures drawn. I spoke to the hospitalist and will admit at this time. Lab Data: Labs: Lab Results 04/16/21 04/16/21 04/16/21 Range/Units 20:25 20:25 20:25 WBC 0.9 L* (4.0-10.0) 10^3/ uL RBC 3.23 L (4.1-5.3) 10^6/u L Hgb 8.5 L (11.5-15.3) g/dL Hct 26.3 L (37.0-47.0) % MCV 81.4 (81-99) fL MCH 26.3 L (28.0-34.0) pg MCHC 32.3 (30.0-36.0) g/dL RDW 21.2 H (12.1-15.1) % Plt Count 101 L (130-400) 10^3/c mm MPV 10.3 (7.4-10.4) fL Neut % (Auto) 19.6 % Lymph % (Auto) 74.7 % [place] % (Auto) 4.6 % Eos % (Auto) 0.0 % Baso % (Auto) 0.0 % Neut # (Auto) 0.17 L* (1.8-7.7) 10^3/u L Lymph # (Auto) 0.7 L (0.8-4.8) 10^3/u L [place] # (Auto) 0.0 L (0.2-0.9) 10^3/u L Eos # (Auto) 0.0 (0.0-0.8) 10^3/u L Baso # (Auto) 0.0 (0.0-0.1) 10^3/u L Nucleated RBC % (a uto) 0 % Nucleated RBCs # 0.0 /100WBC PT 19.30 H (12.1-14.9) SECO NDS INR 1.58 H (0.8-1.2) Sodium 128 L (136-145) mmol/L Potassium 3.0 L (3.5-5.1) mmol/L Chloride 94 L (98-107) mmol/L Carbon Dioxide 22 (22-29) mmol/L Anion Gap 15.0 (5-19) BUN 18 (6-20) mg/dL Creatinine 0.8 (0.5-0.9) mg/dL GFR Calculation 76.2 L (90-130) mL/min Glucose 142 H (65-115) mg/dL Calculated Osmolal ity 270 L (285-295) mOsm/k g Lactate (0.5-2.2) mmol/L Calcium 7.3 L (8.5-10.5) mg/dL Total Bilirubin 1.3 H (0.15-1.2) mg/dL AST 13 (0-32) U/L ALT 20 (0-33) U/L Alkaline Phosphata se 429 H (35-105) IU/L Total Protein 4.7 L (6.6-8.7) g/dL Albumin 2.6 L (3.5-5.2) g/dL Globulin 2.1 (1.3-4.6) g/dL 04/16/21 Range/Units 20:25 WBC (4.0-10.0) 10^3/ uL RBC (4.1-5.3) 10^6/u L Hgb (11.5-15.3) g/dL Hct (37.0-47.0) % MCV (81-99) fL MCH (28.0-34.0) pg MCHC (30.0-36.0) g/dL RDW (12.1-15.1) % Plt Count (130-400) 10^3/c mm MPV (7.4-10.4) fL Neut % (Auto) % Lymph % (Auto) % [place] % (Auto) % Eos % (Auto) % Baso % (Auto) % Neut # (Auto) (1.8-7.7) 10^3/u L Lymph # (Auto) (0.8-4.8) 10^3/u L [place] # (Auto) (0.2-0.9) 10^3/u L Eos # (Auto) (0.0-0.8) 10^3/u L Baso # (Auto) (0.0-0.1) 10^3/u L Nucleated RBC % (a uto) % Nucleated RBCs # /100WBC PT (12.1-14.9) SECO NDS INR (0.8-1.2) Sodium (136-145) mmol/L Potassium (3.5-5.1) mmol/L Chloride (98-107) mmol/L Carbon Dioxide (22-29) mmol/L Anion Gap (5-19) BUN (6-20) mg/dL Creatinine (0.5-0.9) mg/dL GFR Calculation (90-130) mL/min Glucose (65-115) mg/dL Calculated Osmolal ity (285-295) mOsm/k g Lactate 1.5 (0.5-2.2) mmol/L Calcium (8.5-10.5) mg/dL Total Bilirubin (0.15-1.2) mg/dL AST (0-32) U/L ALT (0-33) U/L Alkaline Phosphata se (35-105) IU/L Total Protein (6.6-8.7) g/dL Albumin (3.5-5.2) g/dL Globulin (1.3-4.6) g/dL Discharge Plan Discharge Patient Disposition: Admitted As Inpatient Clinical Impression: Neutropenia with fever, Vomiting Condition: Stable Coding Level of Care Code ED Inspector Assembly for Gisela Fwd Exam Comprehensive
[2021-04-16 20:34] LABS: Hematocrit 26.3 % (37.0-47.0); Hemoglobin 8.5 g/dL (11.5-15.3); Lymphocytes # 0.7 10^3/uL (0.8-4.8); Lymphocytes % 74.7 %; Mean Corpuscular HGB Conc 32.3 g/dL (30.0-36.0); Mean Corpuscular Hemoglobin 26.3 pg (28.0-34.0); Mean Corpuscular Volume 81.4 fL (81-99); Mean Platelet Volume 10.3 fL (7.4-10.4); Monocytes % 4.6 %; Neutrophils % 19.6 %; Nucleated Red Blood Cells % 0 %; Platelet Count 101 10^3/cmm (130-400); Red Blood Count 3.23 10^6/uL (4.1-5.3); Red Cell Distribution Width 21.2 % (12.1-15.1)
[2021-04-16] MEDS: sodium chloride 0.9% 1,000 ML 999 ML IV ×2 (20:42→22:26)
[2021-04-16] MEDS: ondansetron 2 mg/ML SDV 2 mL 4 MG IVP (20:42)
[2021-04-16 20:50] LABS: Alanine Aminotransferase 20 U/L (0-33); Albumin Level 2.6 g/dL (3.5-5.2); Alkaline Phosphatase 429 IU/L (35-105); Aspartate Amino Transferase 13 U/L (0-32); Blood Urea Nitrogen 18 mg/dL (6-20); Calcium 7.3 mg/dL (8.5-10.5); Carbon Dioxide 22 mmol/L (22-29); Chloride 94 mmol/L (98-107); Globulin 2.1 g/dL (1.3-4.6); Glomerular Filtration Rate 76.2 mL/min (90-130); Glucose 142 mg/dL (65-115); Osmolality Calculated 270 mOsm/kg (285-295); Sodium 128 mmol/L (136-145); Total Bilirubin 1.3 mg/dL (0.15-1.2); Total Protein 4.7 g/dL (6.6-8.7)
[2021-04-16 20:51] LABS: Lactate (Lactic Acid level) 1.5 mmol/L (0.5-2.2)
[2021-04-16 20:57] LABS: Slide Review Slide Review Perform
[2021-04-16 20:58] LABS: Neutrophils # 0.17 10^3/uL (1.8-7.7)
[2021-04-16 20:59] LABS: White Blood Count 0.9 10^3/uL (4.0-10.0)
[2021-04-16 21:07] LABS: INR 1.58 (0.8-1.2)
[2021-04-16] MEDS: acetaminophen 1,000 MG/100 ML PIGGYBACK 400 MG IV (21:12)
[2021-04-16 21:22] VITALS: BP 96/65; PULSE 103; RESP 16; O2SAT 98
[2021-04-16] MEDS: piperacillin-tazobactam 3.375 GM in sodium chloride 0.9% (plus) 50 ML IV (21:32)
[2021-04-16] MEDS: vancomycin 1,000 MG in sodium chloride 0.9% 250 ML 250 MG IV (22:23)
--- NOTE | 2021-04-16 22:30 | P.HP_ITS ---
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 is at the bedside who is endorsing that normally after her chemotherapy session she would get diarrhea and she takes Neupogen next week for 3 conjunctive days. Her last chemotherapy session was last week. She has been having loose stool since then it has gotten worse in last few days, there is increased output from the stoma which is completely liquid. She has not been able to eat much because of sore throat and oral ulcers. She is describing her taste change as burning sensation on her tongue., Fever at home 101 Fahrenheit, she is denying dysuria, chest pain, shortness of breath, productive cough. She is stating that for last 3 days she has been experiencing sore throat. She has not been able to eat much on regular basis she would eat full liquid diet. Today they called their oncologist after noticing fever who recommended going to the ER for further evaluation. Diagnosis in the ER revealed neutropenic fever for which she received broad- spectrum antibiotics, I would request CT chest, abdomen and pelvis she does have history of liver metastatic lesion paraesophageal and esophageal varices, she drains her ascitic fluid every other day, recently she drained 1.7 L. Oral exam did not reveal any candidiasis, she has hyperemia/oral ulcers Review of Systems Const: Reports: fever(s), chills, body aches and fatigue Eyes: Reports: change in vision ENMT: Reports: throat pain, odynophagia and mouth pain Card: Denies: chest pain Resp: Denies: dyspnea GI: Reports: diarrhea : Denies: flank pain Musc: Denies: neck pain Skin/Breast: Reports: rash and lesions Neuro: Denies: headache(s) Psych: Reports: anxiety and depression Endo: Denies: polyuria Den/Lymph: Denies: easy bruising All/Imm: Denies: urticaria Medications/Allergies Home Medications Medication Instructions Recorded Confirmed Last Taken Type filgrastim-sndz [Zarxio] See Rx Instructions .ROUTE .COMPLEX 11/07/20 04/16/21 0 04/15/21 History ondansetron HCl [Zofran] 4 mg PO Q6H PRN 03/13/21 04/16/21 03/12/21 History Compazine See Rx Instructions .ROUTE .COMPLEX 04/16/21 04/16/21 04/16/21 History Imodium A-D See Rx Instructions .ROUTE .COMPLEX 04/16/21 04/16/21 04/16/21 History Magic Mouthwash See Rx Instructions .ROUTE .COMPLEX 04/16/21 04/16/21 04/16/21 History Vitamin D3 1 tab PO DAILY 04/16/21 04/16/21 04/16/21 History mirtazapine 15 mg PO BEDTIME 04/16/21 04/16/21 04/15/21 History oxycodone 10 mg PO Q6H PRN 04/16/21 04/16/21 04/15/21 History potassium chloride [Klor-Con M20] 20 meq PO DAILY 04/16/21 04/16/21 04/15/21 History Allergies Allergy/AdvReac Type Severity Reaction Status Date / Time oxyplatin Allergy ALGY-Swell Uncoded 04/16/21 19:54 Lip/Tongue/Throat PFSH Acute PFSH: Medical History Abdominal pain Abnormal colonoscopy Actinic keratoses Allergic dermatitis Blood in stool Breast cancer screening by mammogram Colon cancer Colon cancer metastasized to liver Elevated liver enzymes Fatigue GERD (gastroesophageal reflux disease) Hypertension screen Medication management Medication management Right shoulder strain Sigmoidoscopy performed Vitamin D deficiency Well woman exam with routine gynecological exam Surgical History H/O colonoscopy S/P skin biopsy Family History Mother Diabetes Hypertension Father Diabetes Social History Smoking and tobacco status: never smoked Alcohol intake: current History of recent travel: No Female Reproductive History: Date of last menstrual period: 07/17/21 Para: 3 Vitals/I&O/Wt Last Vital Signs Temp 101.1 F H 04/16/21 19:47 Pulse 103 H 04/16/21 21:22 Resp 16 04/16/21 21:22 BP 96/65 04/16/21 21:22 Pulse Ox 98 04/16/21 21:22 04/16/21 04/16/21 04/16/21 06:59 14:59 22:59 Intake Total 1150 / 1150 Balance 1150 / 1150 Weight last 48 hrs Weight 55.792 kg Physical Exam Narrative: EXAM NARRATIVE: Young female who appears more than stated age, emaciated, malnourished, dehydrated Complaining of sore throat No signs of candidiasis, she has hyperemia around buccal mucosal surfaces no purulent material noted around tonsillar fossa, posterior pharyngeal wall is not hyperemic I was not able to appreciate tender lymphadenopathy around anterior cervical line S1, S2 sinus rhythm Abdomen soft no signs of peritonitis increased output from the colostomy Loose green stool in the colostomy bag Lower extremity left leg edema greater than right no vascular compromise no sign of cellulitis No joint swelling EOMI, PERRLA no neurological deficit Distress mood secondary to sore throat Data : 04/16/21 20:25 04/16/21 20:25 Micro: Microbiology 04/16/21 20:25 Blood Culture - Preliminary Blood SPECIMEN COLLECTED A&P Assessment and plan (1) Colon cancer metastasized to liver: Status: Acute (2) Neutropenic fever: Status: Acute Additional A&P Information Neutropenic fever Sepsis criteria met with fever, leukopenia Start broad-spectrum antibiotics, would use Zosyn and vancomycin We will obtain chest CT abdomen pelvis Patient is complaining of sore throat, buccal mucosal hyperemia noted no tonsillar fossa exudate, posterior pharyngeal wall unremarkable I was not able to appreciate any tender lymphadenopathy anterior cervical chain or submandibular area Requested procalcitonin, urine and blood cultures Patient is endorsing increased output from her colostomy, her last chemotherapy session was about 1-1/2-week ago Would request rapid strep throat test Magic mouthwash She has received 1 dose of Neupogen at home, I will give her second dose today and reevaluate for third dose tomorrow No acute indication for blood transfusion Mild thrombocytopenia no active bleeding Full liquid diet Full code DVT prophylaxis Lovenox Attestations Medical Necessity Statement*: Anticipating stay in the hospital cross more than 2 midnights Time Spent in Patient Care: 35mins Coding Level of Care Code Acute Hot Plate Plywood Press Feeder for Chg Fwd Diagnoses Colon cancer metastasized to liver C18.9; C78.7 Neutropenic fever D70.9; R50.81
[2021-04-16 22:31] VITALS: BP 93/59; PULSE 92; RESP 16; O2SAT 97
[2021-04-16 23:54] VITALS: BP 95/66; PULSE 83; RESP 16; O2SAT 100
[2021-04-17] VITALS (12 sets, daily range): BP systolic 92–107; BP diastolic 60–75; PULSE 82–99; RESP 15–18; TEMP 36.6–36.9; O2SAT 98–100
[2021-04-17] MEDS: lidocaine 2% viscous 1.667 ML, diphenhydrAMINE oral liq 4.165 MG, aluminum-mag hydrox-s... MUCOUS MEM ×5 (00:35→22:38)
--- NOTE | 2021-04-17 01:40 | PC.NURSE ---
ADMIT NOTE UP VIA BED WITH ER STAFF AT SIDE WELL - THIS NURSE AND JIM LO AT SIDE - ORIENTATION TO ROOM PROVIDED PER THIS NURSE WITH HAND HELD CALL LIGHT WITHIN REACH - ALERT AND ORIENTATED - PT COMPLAINS OF MOUTH SORES NOTED SORES TO LEFT SIDE OF TONGUE AND BOTTOM LIP AREA - PT STATES SHE HAS BEEN USING MAGIC MOUTHWASH AT HOME FOR THEM- AP RRR - LUNGS CTA THROUGHOUT - ABD SOFT WITH SLIGHT DISTENTION - RIGHT CHEST WALL PAC ACCESSED IN ER PER PT - SECURED WITH BIOCLUSIVE - NOTED PT TO HAVE ASCITES DRAIN TO RIGHT ABD - LEFT ABD NOTED TO HAVE COLOSTOMY THAT IS PATENT WITH LOOSE BROWN STOOL - LEFT FOOT NOTED TO HAVE 1+EDEMA - SLIGHT AAKASH FOOT DROP NOTED - SACRUM SLIGHTLY REDDENED - AT SIDE AND STATES PT HAS HAD A RAPID DECLINE SINCE AUGUST - HAS LOST APPROX 60# AND IS CURRENTLY UNABLE TO BARE OWN WEIGHT OVER 2 OR SO STEPS - VOICES NEED FOR MODERN LANGUAGES PROFESSOR TO ASSIST IN HOME HEALTH - WILL PASS ON
[2021-04-17 03:10] LABS: Hematocrit 23.4 % (37.0-47.0); Hemoglobin 7.5 g/dL (11.5-15.3); Lymphocytes # 0.7 10^3/uL (0.8-4.8); Lymphocytes % 80.2 %; Mean Corpuscular HGB Conc 32.1 g/dL (30.0-36.0); Mean Corpuscular Hemoglobin 26.3 pg (28.0-34.0); Mean Corpuscular Volume 82.1 fL (81-99); Mean Platelet Volume 10.4 fL (7.4-10.4); Monocytes % 4.9 %; Neutrophils % 13.7 %; Nucleated Red Blood Cells % 0 %; Platelet Count 71 10^3/cmm (130-400); Red Blood Count 2.85 10^6/uL (4.1-5.3); Red Cell Distribution Width 21.2 % (12.1-15.1)
[2021-04-17 03:33] LABS: Anion Gap 12.6 (5-19); Blood Urea Nitrogen 16 mg/dL (6-20); Calcium 7.4 mg/dL (8.5-10.5); Carbon Dioxide 21 mmol/L (22-29); Chloride 101 mmol/L (98-107); Glomerular Filtration Rate 88.9 mL/min (90-130); Glucose 112 mg/dL (65-115); Osmolality Calculated 276 mOsm/kg (285-295); Sodium 132 mmol/L (136-145)
[2021-04-17 03:36] LABS: Slide Review Slide Review Perform
--- NOTE | 2021-04-17 03:36 | PC.PHAR ---
Pharmacokinetic dosing service Date: 04/17/21 Time: 299 Objective: Patient: Christy Tejeda Floor: 270[address]1 Age: 50 yo Serum creatinine: 0.8 mg/dL Height: 69.0 Inches Weight (kg): 55.792 Diagnosis: Relevant medical/social history: Cultures and sensitivities: Other labs: Assessment: IBW (kg): 66.20 Dosing wt(kg): 55.792 Estimated Creatinine clearance (ml/min): 74.9 CRCL method: Cockcroft and Gault using ibw(default). Drug selected: Vancomycin Loading dose (mg): 0 Vd (liters): 50.2 (factor used: 0.9 L/kg) Michael (hr-1): 0.067 Half life (hrs): 10.35 Recommended dose: 1000 mg Interval: 12 hrs Infusion time (hrs): 1.5 Predicted peak (mcg/mL): 34.3 Predicted trough (mcg/mL): 16.97 Total body weight is being used for vancomycin dosing. Renal function is stable [ ] /unstable [ ] Recommendations: Give Vancomycin 1000 mg q 12 hrs with an expected Cpeak of 34.3 mcg/ml and an expected Ctrough of 16.97 mcg/ml Renal dosing of other antibiotics (review renal dosing of other medications and list guidelines here): Thank you for the consult, will continue to follow. Signature: Edwina Grijalva
[2021-04-17 03:37] LABS: Neutrophils # 0.11 10^3/uL (1.8-7.7); White Blood Count 0.8 10^3/uL (4.0-10.0)
[2021-04-17 03:39] LABS: Potassium 2.6 mmol/L (3.5-5.1)
[2021-04-17] MEDS: piperacillin-tazobactam 3.375 GM in sodium chloride 0.9% (plus) 50 ML IV ×3 (04:03→17:51)
[2021-04-17] MEDS: enoxaparin 40 mg/0.4 mL Syringe SUBCUT (04:03)
[2021-04-17] MEDS: dextrose 5%-sod chloride 0.45% 1,000 ML 75 ML IV ×2 (04:04→17:52)
[2021-04-17] MEDS: vancomycin 1,000 MG in sodium chloride 0.9% 250 ML 250 MG IV ×2 (09:29→22:37)
[2021-04-17 11:43] LABS: Rapid Strep A Test Negative (Negative)
--- NOTE | 2021-04-17 12:32 | PC.CHAP ---
Pastoral Care Encounter/Spiritual Assessment Type of Contact [] Declined crimp setter visit [] Patient/Family/Request visit [] Outpatient visit [] Follow-up visit [] Physician referral [] Code/Alert [xx] Routine visit [] Staff referral [] Actively dying [] Patient sleeping [] Family support [] [] Out of room [] Palliative care [] [] Receiving care in room [] Pre-surgical visit [] Trauma [] Long length of stay [] ICU visit [] Other: Relational/Emotional Strength [xx] Patient feels connected with others/family/visitors/staff [] Distress [] Loneliness/isolation [] Abandonment Spirituality of Patient [xx] Person of [place] [xx] Attends Presybeterian of their [place] [xx] Believes in Prayer [xx] Reads Bible or Congregational materials [] There are Spiritual issues to be addressed Internship Coordinator Interventions [xx] Prayer [xx] Active listening [xx] Non-anxious presence [] Spiritual/emotional support [] Crisis/trauma care [] Spiritual counseling [] Bereavement support [] Provided bereavement packet [] Provided Bible/devotional materials [] Provided toy/stuffed animal, coloring book to patient or family member [] Provided Communion [] Anointing/[place] [] Salvation [xx] Completed spiritual assessment [] Other: Impact on Illness or Injury [] Angry [] Fearful [xx] Anxious [xx] Often cries [] Exhaustion [] Unable to work [] Unable to attend anabaptism [] Unable to walk/stand [] Unable to read [] Unable to drive [] Unable to eat/drink [] Unable to sleep [] Unable to be with family [] Patient intubated [] Other: Summary Patient concerned about her health but did not wish to elaborate. She was teary-eyed and said she had sores in her mouth which made it difficult to talk. She requested prayer for her mouth sores and for total healing. She is worried about her future. Time spent with patient 6 minutes
[2021-04-17] MEDS: lidocaine 1% 5 ML in potassium chloride premix 100 ML 25 ML IV ×2 (12:40→16:29)
[2021-04-17 13:45] LABS: Add Urine Culture? No; Add Urine Microscopic? YES; Bacteria Urine 2+ /hpf; Bilirubin Urine Neg (Negative); Blood Urine Neg (Negative); Glucose Urine UA Norm (Normal); Ketones Urine Negative (Negative); Leukocyte Esterase Urine Negative (Negative); Mucus Urine 1+ /hpf; Nitrate Urine Negative (Negative); Protein Urine Trace (Negative); Squamous Epithelial Cell Urine 15-25 /hpf (0-5); Transitional Epi Cells Urine 0-4 /hpf; Urine Appearance Hazy (CLEAR); Urine Color Dark Yellow (Yellow); Urobilinogen Urine Norm (Negative); WBC Urine 0-4 /hpf (0-5); pH Urine 5 (5-7)
--- NOTE | 2021-04-17 19:21 | PM.PN ---
Subjective Subjective: Interval history: overnight labs and H7P reveiwed, no acute interim events, mucositis persisting Vitals/I&O/Wt Last Vital Signs Temp 98.3 F 04/17/21 17:39 Pulse 94 04/17/21 17:39 Resp 15 04/17/21 17:39 BP 96/66 04/17/21 17:39 Pulse Ox 100 04/17/21 17:39 04/17/21 04/17/21 04/17/21 06:59 14:59 22:59 Intake Total 1250 / 2400 780 / 780 1385.417 / 2165.417 Output Total 250 / 250 700 / 700 490 / 1190 Balance 1000 / 2150 80 / 80 895.417 / 975.417 Weight last 48 hrs Weight 55.792 kg Physical Exam Narrative: EXAM NARRATIVE: GEN: Awake, alert and oriented, no acute distress CVS: S1S2 N RS: CTA B/L Abd: Soft, nt/nd , bs+ 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: no focal neuro deficits Data : 04/17/21 02:29 04/17/21 02:29 Micro: Microbiology 04/17/21 04:10 C.difficile Toxin B Gene (PCR) - Final Stool 04/16/21 21:10 Blood Culture - Preliminary Blood SPECIMEN COLLECTED 04/16/21 20:25 Blood Culture - Preliminary Blood SPECIMEN COLLECTED A&P Assessment and plan (1) Colon cancer metastasized to liver: Status: Acute (2) Neutropenic fever: Status: Acute Additional A&P Information Neutropenic fever Sepsis criteria met with fever, leukopenia Continue Zosyn and vancomycin Mucositis, gr 1-2 secondary to recent chemotherapy with irinotecan and FOLFIRI one week ago Magic mouthwash to continue She has received 1 dose of Neupogen at home, usually gets scheduled neupogen over 3 days. No acute indication for blood transfusion Mild thrombocytopenia no active bleeding Blood culture pending c. diff negative Full liquid diet Full code DVT prophylaxis Lovenox Attestations Medical Necessity Statement*: fever and neutropenia, source under evaluation, need for empiric iv abx Coding Level of Care Code Acute Transmission Builder for Chg Fwd Diagnoses Colon cancer metastasized to liver C18.9; C78.7 Neutropenic fever D70.9; R50.81
[2021-04-17] MEDS: oxyCODONE 5 mg IR Tab/Cap 10 MG PO (19:53)
[2021-04-17 21:44] LABS: Vancomycin Trough 16.7 ug/mL (10-15)
[2021-04-17] MEDS: mirtazapine 15 mg Tablet PO (22:37)
[2021-04-18 04:35] VITALS: BP 103/74; PULSE 96; RESP 12; TEMP 37; O2SAT 100
[2021-04-18] MEDS: piperacillin-tazobactam 3.375 GM in sodium chloride 0.9% (plus) 50 ML IV ×3 (04:58→18:09)
[2021-04-18] MEDS: enoxaparin 40 mg/0.4 mL Syringe SUBCUT (04:58)
[2021-04-18 08:00] VITALS: BP 97/70; PULSE 94; RESP 18; TEMP 36.3; O2SAT 94
[2021-04-18] MEDS: dextrose 5%-sod chloride 0.45% 1,000 ML 75 ML IV ×2 (08:20→21:43)
[2021-04-18] MEDS: lidocaine 2% viscous 1.667 ML, diphenhydrAMINE oral liq 4.165 MG, aluminum-mag hydrox-s... MUCOUS MEM ×3 (08:35→17:15)
[2021-04-18 09:11] LABS: Alanine Aminotransferase 13 U/L (0-33); Albumin Level 2.3 g/dL (3.5-5.2); Alkaline Phosphatase 276 IU/L (35-105); Aspartate Amino Transferase 9 U/L (0-32); Blood Urea Nitrogen 14 mg/dL (6-20); Calcium 7.4 mg/dL (8.5-10.5); Carbon Dioxide 22 mmol/L (22-29); Chloride 98 mmol/L (98-107); Globulin 1.8 g/dL (1.3-4.6); Glomerular Filtration Rate 58.9 mL/min (90-130); Glucose 110 mg/dL (65-115); Osmolality Calculated 269 mOsm/kg (285-295); Sodium 129 mmol/L (136-145); Total Bilirubin 0.8 mg/dL (0.15-1.2); Total Protein 4.1 g/dL (6.6-8.7)
[2021-04-18 09:20] LABS: Basophils % 1.5 %; Hematocrit 24.7 % (37.0-47.0); Hemoglobin 7.8 g/dL (11.5-15.3); Lymphocytes % 75.7 %; Mean Corpuscular HGB Conc 31.6 g/dL (30.0-36.0); Mean Corpuscular Hemoglobin 26.2 pg (28.0-34.0); Mean Corpuscular Volume 82.9 fL (81-99); Mean Platelet Volume 10.7 fL (7.4-10.4); Monocytes # 0.1 10^3/uL (0.2-0.9); Monocytes % 8.1 %; Nucleated Red Blood Cells % 0 %; Platelet Count 114 10^3/cmm (130-400); Red Blood Count 2.98 10^6/uL (4.1-5.3); Red Cell Distribution Width 21.4 % (12.1-15.1); White Blood Count 1.4 10^3/uL (4.0-10.0)
[2021-04-18 09:23] LABS: Neutrophils # 0.19 10^3/uL (1.8-7.7); Slide Review Slide Review Perform
[2021-04-18] MEDS: vancomycin 1,000 MG in sodium chloride 0.9% 250 ML 250 MG IV (09:38)
[2021-04-18] MEDS: loperamide 2 mg Capsule PO (13:57)
[2021-04-18] MEDS: lidocaine 1% 5 ML in potassium chloride premix 100 ML 25 ML IV (13:57)
[2021-04-18 15:16] VITALS: BP 102/72; PULSE 98; RESP 17; TEMP 36.4; O2SAT 100
--- NOTE | 2021-04-18 18:46 | P.PN_ITS ---
Subjective Subjective: Interval history: Afebrile over last 24 hours, white blood cell count total improving at 1.4, ANC remains with neutropenia at 100. No new complaints today. Mucositis persisting. Continues to have diarrhea, nausea improved. 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: no focal neuro deficits Data : 04/18/21 08:40 04/18/21 08:40 Micro: Microbiology 04/17/21 04:10 Enteric Pathogens (PCR) - Final Stool Routine Collection 04/17/21 11:20 Group A Streptococcus Rapid Screen - Preliminary Throat 04/16/21 21:10 Blood Culture - Preliminary Blood NEGATIVE TO DATE 04/16/21 20:25 Blood Culture - Preliminary Blood NEGATIVE TO DATE A&P Assessment and plan (1) Colon cancer metastasized to liver: Status: Acute (2) Neutropenic fever: Status: Acute (3) Hypokalemia due to excessive gastrointestinal loss of potassium: Status: Acute Additional A&P Information Neutropenic fever Sepsis criteria met with fever, leukopenia Continue Zosyn and vancomycin empirically Mucositis, gr 1-2 secondary to recent chemotherapy with irinotecan and FOLFIRI one week ago Magic mouthwash to continue add fluconazole She has received scheduled neupogen over 3 days. No acute indication for blood transfusion Mild thrombocytopenia no active bleeding Blood culture pending c. diff negative Patient overall clinically stable today, if ANC continues to improve and patient remains afebrile with negative blood cultures, likely plan is currently in the upcoming hours. Full liquid diet Full code DVT prophylaxis Lovenox Attestations Medical Necessity Statement*: Fever and neutropenia, awaiting blood cultures, ensuring uptrending WBC trend prior to discharge, anticipated in the next 24 to 48 hours. Coding Level of Care Code Acute Water Fabricator Operator for Chg Fwd Diagnoses Colon cancer metastasized to liver C18.9; C78.7 Neutropenic fever D70.9; R50.81 Hypokalemia due to excessive gastrointestinal loss of potassium E87.6
[2021-04-18 20:00] VITALS: BP 95/62; PULSE 88; RESP 16; TEMP 36.4; O2SAT 100
[2021-04-18 21:44] VITALS: RESP 14
[2021-04-18] MEDS: oxyCODONE 5 mg IR Tab/Cap 10 MG PO (21:44)
[2021-04-18] MEDS: fluconazole 100 mg Tablet PO (21:44)
[2021-04-18] MEDS: mirtazapine 15 mg Tablet PO (21:44)
[2021-04-19] VITALS (7 sets, daily range): BP systolic 99–112; BP diastolic 68–81; PULSE 90–102; RESP 14–18; TEMP 35.9–36.6; O2SAT 99–100
[2021-04-19] MEDS: enoxaparin 40 mg/0.4 mL Syringe SUBCUT (03:58)
[2021-04-19] MEDS: piperacillin-tazobactam 3.375 GM in sodium chloride 0.9% (plus) 50 ML IV ×2 (03:58→12:14)
[2021-04-19 06:23] LABS: Basophils % 1.1 %; Hematocrit 25.6 % (37.0-47.0); Hemoglobin 7.9 g/dL (11.5-15.3); Lymphocytes # 1.4 10^3/uL (0.8-4.8); Lymphocytes % 76.1 %; Mean Corpuscular HGB Conc 30.9 g/dL (30.0-36.0); Mean Corpuscular Hemoglobin 26.1 pg (28.0-34.0); Mean Corpuscular Volume 84.5 fL (81-99); Monocytes # 0.2 10^3/uL (0.2-0.9); Monocytes % 10.1 %; Neutrophils % 12.2 %; Nucleated Red Blood Cells % 0 %; Platelet Count 132 10^3/cmm (130-400); Red Blood Count 3.03 10^6/uL (4.1-5.3); Red Cell Distribution Width 21.5 % (12.1-15.1); White Blood Count 1.9 10^3/uL (4.0-10.0)
[2021-04-19 06:41] LABS: Alanine Aminotransferase 13 U/L (0-33); Albumin Level 2.2 g/dL (3.5-5.2); Alkaline Phosphatase 258 IU/L (35-105); Aspartate Amino Transferase 7 U/L (0-32); Blood Urea Nitrogen 13 mg/dL (6-20); Calcium 7.8 mg/dL (8.5-10.5); Carbon Dioxide 21 mmol/L (22-29); Chloride 103 mmol/L (98-107); Globulin 1.9 g/dL (1.3-4.6); Glomerular Filtration Rate 52.8 mL/min (90-130); Glucose 106 mg/dL (65-115); Osmolality Calculated 277 mOsm/kg (285-295); Sodium 133 mmol/L (136-145); Total Bilirubin 0.8 mg/dL (0.15-1.2); Total Protein 4.1 g/dL (6.6-8.7)
[2021-04-19 07:27] LABS: Neutrophils # 0.23 10^3/uL (1.8-7.7); Slide Review Slide Review Perform
[2021-04-19] MEDS: dextrose 5%-sod chloride 0.45% 1,000 ML 75 ML IV (10:12)
[2021-04-19] MEDS: fluconazole 100 mg Tablet PO (10:16)
[2021-04-19] MEDS: potassium chloride oral liq 20 mEq/15 mL UDC 60 MEQ PO (12:12)
[2021-04-19] MEDS: lidocaine 2% viscous 1.667 ML, diphenhydrAMINE oral liq 4.165 MG, aluminum-mag hydrox-s... MUCOUS MEM (12:21)
[2021-04-19] MEDS: cetylpyridinium Lozenge 2 EACH MUCOUS MEM (13:26)
--- NOTE | 2021-04-19 14:22 | PM.DCS ---
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 She has not been able to eat much because of sore throat and oral ulcers related to mucositis. She was directed to come to ER by her oncologist. Fever evaluation included negative blood culture, negative enteric bacterial panel, negative C diff PCR, negative GAS screen, UA with negative nitrate and leukocyte esterase, CXR without consolodation or signs of pneumonitis. She was admitted and treated with broad spectrum abx Zosyn and Vancomycin. She remains afberile over the last 48 hrs. She is being transitioned to oral treatment with Augmentin and Levofloxacin to complete 7 days of empiric treatment. She has a follow up with her oncologist on . She received neupogen over 3 days, ANC currently improving at 200, but still remains neutropenic. For mucositis, she received symptomatic treatment with magic mouthwash, oral fluconazole, cepachol. Diarrhea improving with imodium. She i sbeing discharged today being afberile, hemodynamically stable. 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: no focal neuro deficits Discharge Data Data Completed and Pending: Completed Studies During Hospitalization Category Date Time Status XR chest 1V indira ble [id number] Urgent Exams 04/16/21 19:59 Completed Pending at discharge Category Date Time Status Blood Culture Sta t Lab 04/16/21 21:10 Results Labs from last 24 hours 04/19/21 04/19/21 04/18/21 06:05 06:05 21:50 WBC 1.9 L RBC 3.03 L Hgb 7.9 L Hct 25.6 L MCV 84.5 MCH 26.1 L MCHC 30.9 RDW 21.5 H Plt Count 132 MPV 11.0 H Neut % (Auto) 12.2 Lymph % (Auto) 76.1 [place] % (Auto) 10.1 Eos % (Auto) 0.0 Baso % (Auto) 1.1 Neut # (Auto) 0.23 L* Lymph # (Auto) 1.4 [place] # (Auto) 0.2 Eos # (Auto) 0.0 Baso # (Auto) 0.0 Nucleated RBC % (a uto) 0 Nucleated RBCs # 0.0 Sodium 133 L Potassium 3.0 L Chloride 103 Carbon Dioxide 21 L Anion Gap 12.0 BUN 13 Creatinine 1.1 H GFR Calculation 52.8 L Glucose 106 Calculated Osmolal ity 277 L Calcium 7.8 L Total Bilirubin 0.8 AST 7 ALT 13 Alkaline Phosphata se 258 H Total Protein 4.1 L Albumin 2.2 L Globulin 1.9 Vancomycin Trough 31.0 H* Vitals: Last Vital Signs Temp 97.5 F L 04/19/21 12:00 Pulse 102 H 04/19/21 12:00 Resp 18 04/19/21 12:00 BP 109/72 04/19/21 12:00 Pulse Ox 100 04/19/21 12:00 Discharge Plan Discharge Patient Disposition: Home Condition: Stable Prescriptions: New Augmentin 250-62.5 mg/5 mL suspension for reconstitution 10 ml PO Q8H 7 Days Qty: 210 RF: 0 levofloxacin 250 mg/10 mL solution 500 mg PO Q24H 7 Days Qty: 140 RF: 0 fluconazole 40 mg/mL suspension for reconstitution 100 mg PO DAILY 5 Days Qty: 35 RF: 0 Sore Throat (benzocaine-menth) 15-3.6 mg Lozenge 2 ea mucous membrane Q4H PRN (Reason: sores in mouth) Qty: 0 RF: 0 Continued Zarxio 300 mcg/0.5 mL Syringe See Rx Instructions .ROUTE .COMPLEX RF: 0 ondansetron HCl [Zofran] 4 mg Tablet 4 mg PO Q6H PRN (Reason: Nausea) RF: 0 Klor-Con M20 20 mEq tablet,ER particles/crystals 20 meq PO DAILY RF: 0 mirtazapine 15 mg tablet 15 mg PO BEDTIME RF: 0 oxycodone 10 mg tablet 10 mg PO Q6H PRN (Reason: Pain) RF: 0 Compazine See Rx Instructions .ROUTE .COMPLEX RF: 0 Imodium A-D See Rx Instructions .ROUTE .COMPLEX RF: 0 Magic Mouthwash See Rx Instructions .ROUTE .COMPLEX RF: 0 Vitamin D3 1 tab PO DAILY RF: 0 Discharge Orders: Discharge Order (Routine); Ordered 04/19/21 Ordered By: Marcia Almeida Referrals: LOUIS Cabrera, VOCATIONAL EVALUATOR [Primary Care Provider] - Discharge Diet: Advance as tolerated, Soft Mechanical and Full LIquid Discharge Activity: Resume usual activity Patient Instructions: Opioid Safety Discharge Attestations Time Spent in Discharge Care*: other Quality Metrics Clinical Quality Measures During this hospital stay, did patient experience: None Coding Level of Care Code Acute g FW CT note Diagnoses Colon cancer metastasized to liver C18.9; C78.7 Neutropenic fever D70.9; R50.81 Hypokalemia due to excessive gastrointestinal loss of potassium E87.6
--- NOTE | 2021-04-19 16:24 | PC.NURSE ---
De accessed port and placed 2x2 [address] tape [address].
== END 2021-04-19 15:45 | disposition home health service (06) | DRG 872 ==
LOC: ER 22:32 → ICU 23:08 → MEDSURG 04-17 00:13
PROVIDERS: Admitting Provider Internal Medicine; Emergency Provider Emergency Medicine; PCP Nurse Practitioner Family; Visit Provider Student in an Organized Health Care Education/Training Program
DX: A41.9 Sepsis, unspecified organism (principal); C18.6 Malignant neoplasm of descending colon; C78.7 Secondary malignant neoplasm of liver and intrahepatic bile duct; I85.00 Esophageal varices without bleeding; E46 Unspecified protein-calorie malnutrition; Z68.1 Body mass index [BMI] 19.9 or less, adult; Z79.899 Other long term (current) drug therapy; D70.1 Agranulocytosis secondary to cancer chemotherapy; T45.1X5A Adverse effect of antineoplastic and immunosuppressive drugs, initial encounter; K12.31 Oral mucositis (ulcerative) due to antineoplastic therapy; L57.0 Actinic keratosis; K21.9 Gastro-esophageal reflux disease without esophagitis; E55.9 Vitamin D deficiency, unspecified; E87.6 Hypokalemia
CPT/HCPCS: 36591; 71045; 80048; 80053; 80202; 81001; 83605; 85025; 85610; 87040; 87081; 87493; 87506; 87880; 96365; 96367; 96372; 96375; 97161; 99291; 99292; J1442; J1650; J2405; J2543; J3370; J3480; J7030; J7050; J7799

== ENCOUNTER 2021-05-21 17:08 | Inpatient (IN) | payer BC, SELFPAY ==
[2021-05-21] VITALS (7 sets, daily range): BP systolic 81–116; BP diastolic 62–92; PULSE 97–124; RESP 16–24; TEMP 37.1; O2SAT 98–99
--- NOTE | 2021-05-21 19:04 | ECG_ITS ---
[facility] ED Test Date: 2021-05-21 Pat Name: Christy Tejeda Department: Room: Gender: Female Floors Buffer: : 1970 Requested By: Ashish Earl Order Number: [id number] Ana Cristina MD: Tila Haile M.D. Measurements Intervals [place] Rate: 111 P: -7 CT: 125 QRS: 60 QRSD: 72 T: 55 QT: 291 QTc: 397 Interpretive Statements SINUS TACHYCARDIA LOW QRS VOLTAGE IN PRECORDIAL LEADS [QRS DEFLECTION < 1.0 mV IN CHEST LEADS] NONSPECIFIC T-WAVE ABNORMALITY No previous ECG available for comparison Electronically Signed On 05-22-2021 16:41:44 CDT by Tila Haile M.D. [id number]
--- NOTE | 2021-05-21 19:37 | W.ED.RECABL ---
HPI - Recheck/Abnormal Lab/Rx General: Chief Complaint: Recheck/Abnormal Lab/Rx Stated Complaint: low sodium Time Seen by Provider: 05/21/21 19:03 Source: patient Mode of arrival: ambulatory Limitations: no limitations History of Present Illness: HPI narrative: 50-year-old female who has a history of colon cancer with liver mets. She recently finished chemo radiation 1 month ago. She states she contemplating on going on hospice and believes she is going to go on hospice. She states that she had her blood drawn today that when she was very hyponatremic. Her sodium was 122. She states that she has been feeling weak and would like to have her sodium treated. She denies any vomiting or diarrhea. She has had decreased appetite. Review of Systems Const: Denies: fever(s), chills, body aches or change in appetite Eyes: Denies: blurry vision or eye discomfort ENMT: Denies: throat pain or dental pain Card: Denies: chest pain Resp: Denies: dyspnea GI: Denies: abdominal pain, nausea, vomiting or diarrhea : Denies: dysuria Musc: Denies: neck pain or back pain Skin/Breast: Denies: rash Neuro: Denies: headache(s) Psych: Denies: depression Den/Lymph: Denies: easy bruising All/Imm: Denies: urticaria PFSH ED PFSH: Medical History Abdominal pain Abnormal colonoscopy Actinic keratoses Allergic dermatitis Blood in stool Breast cancer screening by mammogram Colon cancer Colon cancer metastasized to liver Elevated liver enzymes Fatigue GERD (gastroesophageal reflux disease) Hypertension screen Medication management Medication management Right shoulder strain Sigmoidoscopy performed Vitamin D deficiency Well woman exam with routine gynecological exam Surgical History H/O colonoscopy S/P skin biopsy Family History Mother Diabetes Hypertension Father Diabetes Social History Smoking and tobacco status: never smoked Alcohol intake: current History of recent travel: No Female Reproductive History: Date of last menstrual period: 07/17/21 Para: 3 Physical Exam Const: COMMON NORMALS: patient oriented x3 GENERAL APPEARANCE: ill appearing NUTRITIONAL APPEARANCE: cachectic HENMT: COMMON NORMALS: normocephalic and atraumatic HEAD & SCALP: normocephalic and atraumatic Eye: COMMON NORMALS: Equal, round and reactive pupils present and EOMs intact bilaterally PUPIL: Yes Equal, round and reactive pupils present Neck/C-Spine: COMMON NORMALS: full ROM and supple Chest: COMMONS NORMALS: normal inspection of the chest and normal palpation of entire chest wall Resp: COMMON NORMALS: normal respiratory effort, No retractions, No use of accessory muscles and clear to auscultation bilaterally AUSCULTATION: clear to auscultation bilaterally Cardio: COMMON NORMALS: regular rate, regular rhythm and No murmurs present (Cardio) RATE: regular rate RHYTHM: regular rhythm GI: COMMON NORMALS: Normal to inspection, nondistended, normoactive bowel sounds present, Soft to palpation, non-tender and no masses PALPATION: Yes Soft to palpation Extremity: COMMON NORMALS: normal to inspection and full ROM Neuro: COMMON NORMALS: patient oriented x3, moves all extremities and no focal motor deficits Psych: COMMON NORMALS: mental status grossly normal, Normal thought process present and cooperative THOUGHT PROCESS: Normal thought process present Skin: COMMON NORMALS: no rashes or lesions noted and no wounds GENERAL SKIN EXAM: no rashes or lesions noted Course Vital Signs: Vital signs: Vital Signs Temperature 98.7 F 05/21/21 17:54 Pulse Rate 124 H 05/21/21 17:54 Respiratory Rate 16 05/21/21 20:20 Blood Pressure 81/62 05/21/21 17:54 Pulse Oximetry 98 05/21/21 17:54 MDM - Recheck/Abnormal Lab/Rx MDM Narrative: Medical decision making narrative: Patient presents with hyponatremia likely due to dehydration and from her cancer. Patient is considering hospice. Patient does have an elevated white count and concern for possible infection as well will start IV antibiotics. Patient refused any imaging including a chest x-ray. Spoke to hospitalist will admit this time. Lab Data: Labs: Lab Results 05/21/21 05/21/21 05/21/21 Range/Units 20:00 20:00 20:00 WBC 26.5 H (4.0-10.0) 10^3/ uL RBC 3.57 L (4.1-5.3) 10^6/u L Hgb 10.3 L (11.5-15.3) g/dL Hct 32.4 L (37.0-47.0) % MCV 90.8 (81-99) fL MCH 28.9 (28.0-34.0) pg MCHC 31.8 (30.0-36.0) g/dL RDW 19.1 H (12.1-15.1) % Plt Count 331 (130-400) 10^3/c mm MPV 10.0 (7.4-10.4) fL Neut % (Auto) 85.9 % Lymph % (Auto) 7.0 % Miller % (Auto) 5.1 % Eos % (Auto) 0.7 % Baso % (Auto) 0.2 % Neut # (Auto) 22.71 H (1.8-7.7) 10^3/u L Lymph # (Auto) 1.9 (0.8-4.8) 10^3/u L Miller # (Auto) 1.4 H (0.2-0.9) 10^3/u L Eos # (Auto) 0.2 (0.0-0.8) 10^3/u L Baso # (Auto) 0.1 (0.0-0.1) 10^3/u L Nucleated RBC % (a uto) 0 % Nucleated RBCs # 0.0 /100WBC Sodium 122 L (136-145) mmol/L Potassium 4.9 (3.5-5.1) mmol/L Chloride 91 L (98-107) mmol/L Carbon Dioxide 19 L (22-29) mmol/L Anion Gap 16.9 (5-19) BUN 14 (6-20) mg/dL Creatinine 0.8 (0.5-0.9) mg/dL GFR Calculation 76.2 L (90-130) mL/min Glucose 102 (65-115) mg/dL Calculated Osmolal ity 255 L (285-295) mOsm/k g Lactate 2.0 (0.5-2.2) mmol/L Calcium 7.7 L (8.5-10.5) mg/dL Total Bilirubin 1.6 H (0.15-1.2) mg/dL AST 74 H (0-32) U/L ALT 40 H (0-33) U/L Alkaline Phosphata se 1975 H* (35-105) IU/L Total Protein 4.2 L (6.6-8.7) g/dL Albumin 2.3 L (3.5-5.2) g/dL Globulin 1.9 (1.3-4.6) g/dL Urine Color (Yellow) Urine Appearance (CLEAR) Urine pH (5-7) Ur Specific Gravit y (1.005-1.030) Urine Protein (Negative) Urine Glucose (UA) (Normal) Urine Ketones (Negative) Urine Blood (Negative) Urine Nitrate (Negative) Urine Bilirubin (Negative) Urine Urobilinogen (Negative) mg/dL Ur Leukocyte Kamala ase (Negative) Urine RBC (0-2) /hpf Urine WBC (0-5) /hpf Ur Squamous Epith Cells (0-5) /hpf Amorphous Sediment Urine Bacteria (NONE) /hpf Hyaline Casts /lpf Urine Mucus /hpf 05/21/21 05/21/21 Range/Units 23:29 23:55 WBC (4.0-10.0) 10^3/ uL RBC (4.1-5.3) 10^6/u L Hgb (11.5-15.3) g/dL Hct (37.0-47.0) % MCV (81-99) fL MCH (28.0-34.0) pg MCHC (30.0-36.0) g/dL RDW (12.1-15.1) % Plt Count (130-400) 10^3/c mm MPV (7.4-10.4) fL Neut % (Auto) % Lymph % (Auto) % Miller % (Auto) % Eos % (Auto) % Baso % (Auto) % Neut # (Auto) (1.8-7.7) 10^3/u L Lymph # (Auto) (0.8-4.8) 10^3/u L Miller # (Auto) (0.2-0.9) 10^3/u L Eos # (Auto) (0.0-0.8) 10^3/u L Baso # (Auto) (0.0-0.1) 10^3/u L Nucleated RBC % (a uto) % Nucleated RBCs # /100WBC Sodium 125 L (136-145) mmol/L Potassium 4.2 (3.5-5.1) mmol/L Chloride 98 (98-107) mmol/L Carbon Dioxide 18 L (22-29) mmol/L Anion Gap 13.2 (5-19) BUN 12 (6-20) mg/dL Creatinine 0.6 (0.5-0.9) mg/dL GFR Calculation 106.3 (90-130) mL/min Glucose 83 (65-115) mg/dL Calculated Osmolal ity 259 L (285-295) mOsm/k g Lactate (0.5-2.2) mmol/L Calcium 7.1 L (8.5-10.5) mg/dL Total Bilirubin (0.15-1.2) mg/dL AST (0-32) U/L ALT (0-33) U/L Alkaline Phosphata se (35-105) IU/L Total Protein (6.6-8.7) g/dL Albumin (3.5-5.2) g/dL Globulin (1.3-4.6) g/dL Urine Color Shabnam (Yellow) Urine Appearance Clear (CLEAR) Urine pH 5 (5-7) Ur Specific Gravit y 1.020 (1.005-1.030) Urine Protein Neg (Negative) Urine Glucose (UA) Norm (Normal) Urine Ketones Negative (Negative) Urine Blood Neg (Negative) Urine Nitrate Negative (Negative) Urine Bilirubin 1+ H (Negative) Urine Urobilinogen 1 H (Negative) mg/dL Ur Leukocyte Kamala ase Trace H (Negative) Urine RBC 0-4 H (0-2) /hpf Urine WBC 0-4 H (0-5) /hpf Ur Squamous Epith Cells 0-4 H (0-5) /hpf Amorphous Sediment Not Reportable Urine Bacteria Trace (NONE) /hpf Hyaline Casts 5-10 H /lpf Urine Mucus Trace /hpf EKG Data^: EKG 1: Attestation: I personally reviewed and interpreted this EKG as follows: EKG interpretation date: 05/21/21 EKG interpretation time: 19:28 Interpretation: sinus tach hr [address] or t wave abnormalities qrs 72 qtc 357 Discharge Plan Discharge Patient Disposition: Admitted As Inpatient Clinical Impression: Colon cancer metastasized to liver, Hyponatremia, Leukocytosis Condition: Stable Prescriptions: No Action ondansetron HCl [Zofran] 4 mg Tablet 8 mg PO Q6H PRN (Reason: Nausea) RF: 0 potassium chloride [Klor-Con M20] 20 mEq tablet,ER particles/crystals 20 meq PO DAILY RF: 0 oxycodone 10 mg tablet 10 mg PO Q6H PRN (Reason: Pain) RF: 0 Imodium A-D See Rx Instructions .ROUTE .COMPLEX RF: 0 Magic Mouthwash See Rx Instructions .ROUTE .COMPLEX RF: 0 Vitamin D3 1 tab PO DAILY RF: 0 Referrals: LOUIS Cabrera, [employer]ORATORY TECHNICIAN [Primary Care Provider] - Patient Instructions: Opioid Safety Coding Level of Care Code ED Director Of Marketing And Promotions for [facility] Fwd Exam Comprehensive
[2021-05-21 20:16] LABS: Basophils # 0.1 10^3/uL (0.0-0.1); Basophils % 0.2 %; Eosinophils # 0.2 10^3/uL (0.0-0.8); Eosinophils % 0.7 %; Hematocrit 32.4 % (37.0-47.0); Hemoglobin 10.3 g/dL (11.5-15.3); Lymphocytes # 1.9 10^3/uL (0.8-4.8); Mean Corpuscular HGB Conc 31.8 g/dL (30.0-36.0); Mean Corpuscular Hemoglobin 28.9 pg (28.0-34.0); Mean Corpuscular Volume 90.8 fL (81-99); Monocytes # 1.4 10^3/uL (0.2-0.9); Monocytes % 5.1 %; Neutrophils # 22.71 10^3/uL (1.8-7.7); Neutrophils % 85.9 %; Nucleated Red Blood Cells % 0 %; Platelet Count 331 10^3/cmm (130-400); Red Blood Count 3.57 10^6/uL (4.1-5.3); Red Cell Distribution Width 19.1 % (12.1-15.1); White Blood Count 26.5 10^3/uL (4.0-10.0)
[2021-05-21] MEDS: ondansetron 2 mg/ML SDV 2 mL 4 MG IVP (20:20)
[2021-05-21] MEDS: morphine 4 mg/mL SDV 1 mL IVP (20:20)
[2021-05-21] MEDS: sodium chloride 0.9% 1,000 ML 999 ML IV ×2 (20:22→22:22)
[2021-05-21] MEDS: lidocaine 2% viscous 15 ML, aluminum-mag hydrox-simethicon 30 ML, sucralfate oral liq 1 GM PO (20:25)
[2021-05-21 20:51] LABS: Alanine Aminotransferase 40 U/L (0-33); Albumin Level 2.3 g/dL (3.5-5.2); Anion Gap 16.9 (5-19); Aspartate Amino Transferase 74 U/L (0-32); Blood Urea Nitrogen 14 mg/dL (6-20); Calcium 7.7 mg/dL (8.5-10.5); Carbon Dioxide 19 mmol/L (22-29); Chloride 91 mmol/L (98-107); Globulin 1.9 g/dL (1.3-4.6); Glomerular Filtration Rate 76.2 mL/min (90-130); Glucose 102 mg/dL (65-115); Osmolality Calculated 255 mOsm/kg (285-295); Potassium 4.9 mmol/L (3.5-5.1); Sodium 122 mmol/L (136-145); Total Bilirubin 1.6 mg/dL (0.15-1.2); Total Protein 4.2 g/dL (6.6-8.7)
[2021-05-21 21:09] LABS: Alkaline Phosphatase 1975 IU/L (35-105)
--- NOTE | 2021-05-21 23:34 | PC.NURSE ---
SECOND LITER NS INFUSED, BMP DRAWN AND SENT TO LAB. PT'S REMAINS AT BEDSIDE.
[2021-05-22] VITALS (16 sets, daily range): BP systolic 95–110; BP diastolic 54–80; PULSE 67–123; RESP 15–33; TEMP 36.4–37.2; O2SAT 90–100
[2021-05-22 00:16] LABS: Add Urine Microscopic? YES; Bacteria Urine TRACE /hpf; Bilirubin Urine 1+ (Negative); Blood Urine Neg (Negative); Glucose Urine UA Norm (Normal); Ketones Urine Negative (Negative); Leukocyte Esterase Urine Trace (Negative); Nitrate Urine Negative (Negative); Protein Urine Neg (Negative); RBC Urine 0-4 /hpf (0-2); Squamous Epithelial Cell Urine 0-4 /hpf (0-5); Urine Appearance Clear (CLEAR); Urine Color Amber (Yellow); Urobilinogen Urine 1 mg/dL (Negative); WBC Urine 0-4 /hpf (0-5); pH Urine 5 (5-7)
[2021-05-22 00:17] LABS: Add Urine Culture? No; Mucus Urine TRACE /hpf
[2021-05-22] MEDS: HYDROmorphone 1 mg/mL INJ 1 mL IVP ×3 (00:22→04:59)
[2021-05-22 00:29] LABS: Anion Gap 13.2 (5-19); Blood Urea Nitrogen 12 mg/dL (6-20); Calcium 7.1 mg/dL (8.5-10.5); Carbon Dioxide 18 mmol/L (22-29); Chloride 98 mmol/L (98-107); Glomerular Filtration Rate 106.3 mL/min (90-130); Glucose 83 mg/dL (65-115); Osmolality Calculated 259 mOsm/kg (285-295); Potassium 4.2 mmol/L (3.5-5.1); Sodium 125 mmol/L (136-145)
--- NOTE | 2021-05-22 00:48 | P.HP_ITS ---
Providers/Chief Complaint Primary Care Provider: BRENDON Finnegan Chief Complaint: low sodium History of Present Illness Christy Tejeda is a 50 year old female who has history of descending colon cancer with metastatic lesions throughout the liver, follows up at [facility] [place] [facility], she was there today for follow-up appointment and decision was made to pursue hospice care secondary to her poor functional status, she was asked to go to the ER because of her severe hyponatremia. Patient is stating that she uses walker for ambulation at home, no recent diarrhea, fever, chest pain shortness of breath or productive cough. She is not vaccinated with COVID-19. She is denying nausea, vomiting. She is trying to eat 3 times a day despite her anorexia. She has not noticed increased output from her colostomy bag, she drains 1 L from peritoneal drain every other night. Diagnostic work-up in the ER revealed severe leukocytosis, she is afebrile, she is not neutropenic, sodium 125, previous sodium has been fluctuating between 128-129 as well, bilirubin 1.6, mildly elevated transaminases, albumin 2.3,Normal TSH, Patient is complaining of lethargy and fatigue Review of Systems Const: Reports: chills, body aches, change in appetite, change in weight, fatigue and malaise; Denies: fever(s) Eyes: Denies: change in vision ENMT: Denies: throat pain Card: Denies: chest pain Resp: Denies: dyspnea GI: Reports: nausea; Denies: abdominal pain or diarrhea : Denies: flank pain Musc: Reports: muscle cramps and decrease in muscle mass Skin/Breast: Reports: lesions Neuro: Reports: numbness in extremities and difficulty walking; Denies: frequent falls, confusion or behavioral changes Psych: Denies: anxiety Endo: Denies: polyuria Den/Lymph: Denies: easy bruising All/Imm: Denies: urticaria Medications/Allergies Home Medications Medication Instructions Recorded Confirmed Last Taken Type ondansetron HCl [Zofran] 8 mg PO Q6H PRN 03/13/21 05/21/21 05/21/21 History Imodium A-D See Rx Instructions .ROUTE .COMPLEX 04/16/21 05/21/21 04/16/21 History Magic Mouthwash See Rx Instructions .ROUTE .COMPLEX 04/16/21 05/21/2104/16/21 History Vitamin D3 1 tab PO DAILY 04/16/21 05/21/21 05/20/21 History oxycodone 10 mg PO Q6H PRN 04/16/21 05/21/21 04/15/21 History potassium chloride [Klor-Con M20] 20 meq PO DAILY 04/16/21 05/21/21 04/15/21 History Allergies Allergy/AdvReac Type Severity Reaction Status Date / Time oxyplatin Allergy ALGY-Swell Uncoded 04/16/21 19:54 Lip/Tongue/Throat PFSH Acute PFSH: Medical History Abdominal pain Abnormal colonoscopy Actinic keratoses Allergic dermatitis Blood in stool Breast cancer screening by mammogram Colon cancer Colon cancer metastasized to liver Elevated liver enzymes Fatigue GERD (gastroesophageal reflux disease) Hypertension screen Medication management Medication management Right shoulder strain Sigmoidoscopy performed Vitamin D deficiency Well woman exam with routine gynecological exam Surgical History H/O colonoscopy S/P skin biopsy Family History Mother Diabetes Hypertension Father Diabetes Social History Smoking and tobacco status: never smoked Alcohol intake: current History of recent travel: No Female Reproductive History: Date of last menstrual period: 07/17/21 Para: 3 Vitals/I&O/Wt Last Vital Signs Temp 98.7 F 05/21/21 17:54 Pulse 124 H 05/21/21 17:54 Resp 16 05/21/21 20:20 BP 81/62 05/21/21 17:54 Pulse Ox 98 05/21/21 17:54 Weight last 48 hrs Weight 55.338 kg Physical Exam Narrative: EXAM NARRATIVE: middle-aged female Thin, frail, malnourished Lower extremity edema noted S1, S2 sinus rhythm tender tachycardia Abdomen soft colostomy bag draining green color stool Nontender abdomen bowel sound present Peritoneal drain without any discharge at insertion site EOMI, PERRLA Awake alert oriented x3 GCS 15 No neurological deficit Appropriate mood and affect Clinically looks dehydrated Data : 05/21/21 20:00 05/21/21 23:29 Micro: Microbiology 05/21/21 20:00 Blood Culture - Preliminary Blood SPECIMEN COLLECTED 05/21/21 20:00 Blood Culture - Preliminary Blood SPECIMEN COLLECTED A&P Assessment and plan (1) Colon cancer metastasized to liver: Status: Acute (2) Colon cancer: Status: Acute Qualifiers: Colon location: unspecified part of colon Qualified Code(s): C18.9 - Malignant neoplasm of colon, unspecified (3) Elevated liver enzymes: Status: Acute (4) Hyponatremia: Status: Acute (5) Sepsis: Status: Acute Additional A&P Information Sepsis Criteria met with tachycardia, leukocytosis lactic acid normal, Patient refused accessory in the ER I will go ahead and start her on vancomycin and cefepime Requested blood cultures We will keep her on gentle fluid hydration for now she received 2 L normal saline bolus in the ER Not complaining active fever, productive cough, she is not vaccinated for COVID- 19 Afebrile no signs of neutropenia Previous blood cultures negative No active diarrhea Chronic hyponatremia Patient is endorsing anorexia however able to eat 3 times a day, she is denying active diarrhea, vomiting increased output from colostomy, I do believe this is related to her limited p.o. intake with underlying cancer, gentle fluid hydration at lower rate, target 6 mEq replenishment in 24 hours Colon cancer with liver metastases: That would explain high bilirubin and abnormal transaminases, Goals of care discussed with the patient, she expresses wishes to start CPR in case of cardiac arrest and intubate for respiratory failure and hypoxia, but does not want to prolong CPR beyond 15 minutes if there is no ROSC, does not want to stay on ventilator for prolonged period time However considering hospice at home after she is discharged from the hospital Regular diet DVT prophylaxis: SCDs, would avoid anticoagulating agent due to history of anemia and GI bleed Attestations Medical Necessity Statement*: Anticipating discharge within 48 hours continued management for hyponatremia Time Spent in Patient Care: Greater than 35 minutes Coding Level of Care Code Acute [place] [employer] for [facility] Fwd Diagnoses Colon cancer metastasized to liver C18.9; C78.7 Colon cancer C18.9 Colon location: unspecified part of colon Elevated liver enzymes R74.8 Hyponatremia E87.1 Sepsis A41.9
[2021-05-22] MEDS: sodium chloride 0.9% 1,000 ML 30 ML IV (04:39)
--- NOTE | 2021-05-22 05:00 | PC.PHAR ---
Vancomycin is dosed at 1gm IVPB every 12 hours to produce a predicted trough level of 15.03 (population based pharmacokinetic analysis). A trough level has been ordered from the lab to confirm and adjust if needed.
[2021-05-22 06:06] LABS: Basophils # 0.1 10^3/uL (0.0-0.1); Basophils % 0.3 %; Eosinophils # 0.2 10^3/uL (0.0-0.8); Eosinophils % 0.8 %; Hematocrit 32.6 % (37.0-47.0); Hemoglobin 9.9 g/dL (11.5-15.3); Lymphocytes # 1.9 10^3/uL (0.8-4.8); Lymphocytes % 8.5 %; Mean Corpuscular HGB Conc 30.4 g/dL (30.0-36.0); Mean Corpuscular Hemoglobin 28.8 pg (28.0-34.0); Mean Corpuscular Volume 94.8 fL (81-99); Monocytes # 1.4 10^3/uL (0.2-0.9); Monocytes % 6.3 %; Neutrophils # 18.43 10^3/uL (1.8-7.7); Neutrophils % 83.1 %; Nucleated Red Blood Cells % 0 %; Platelet Count 274 10^3/cmm (130-400); Red Blood Count 3.44 10^6/uL (4.1-5.3); Red Cell Distribution Width 19.4 % (12.1-15.1); White Blood Count 22.2 10^3/uL (4.0-10.0)
[2021-05-22 06:17] LABS: Anion Gap 14.3 (5-19); Blood Urea Nitrogen 13 mg/dL (6-20); Calcium 7.7 mg/dL (8.5-10.5); Carbon Dioxide 19 mmol/L (22-29); Chloride 98 mmol/L (98-107); Glomerular Filtration Rate 88.9 mL/min (90-130); Glucose 84 mg/dL (65-115); Osmolality Calculated 263 mOsm/kg (285-295); Potassium 4.3 mmol/L (3.5-5.1); Sodium 127 mmol/L (136-145)
[2021-05-22] MEDS: vancomycin 1,000 MG in sodium chloride 0.9% 250 ML 250 MG IV (06:22)
--- NOTE | 2021-05-22 06:30 | PC.NURSE ---
Approved for to stay past visiting hours per Dr. Moeller and warehouse team member.
--- NOTE | 2021-05-22 07:21 | PC.NURSE ---
Shift Note Frequent safety and comfort rounds continue. Orders and/or nursing care completed as indicated. Patient monitored for response to intervention and treatment(s). Education provided includes PRN pain medications. Patient and/or correspondence representative verbalized understanding. Will continue to monitor.
[2021-05-22] MEDS: oxyCODONE 5 mg IR Tab/Cap 10 MG PO (09:29)
[2021-05-22] MEDS: HYDROmorphone 1 mg/mL INJ 1 mL 0.4 MG IVP (11:38)
--- NOTE | 2021-05-22 11:51 | PC.CHAP ---
Pastoral Care Encounter/Spiritual Assessment Type of Contact [] Declined mining captain visit [] Patient/Family/Request visit [] Outpatient visit [] Follow-up visit [] Physician referral [] Code/Alert [xx] Routine visit [] Staff referral [] Actively dying [] Patient sleeping [] Family support [] [] Out of room [] Palliative care [] [] Receiving care in room [] Pre-surgical visit [] Trauma [] Long length of stay [] ICU visit [] Other: Relational/Emotional Strength [xx] Patient feels connected with others/family/visitors/staff [] Distress [] Loneliness/isolation [] Abandonment Spirituality of Patient [xx] Person of Dul[place] [xx] Attends Methodist of their [place] [xx] Believes in Prayer [xx] Reads Bible or Confucianist materials [] There are Spiritual issues to be addressed Blending Supervisor Interventions [] Prayer [xx] Active listening [xx] Non-anxious presence [] Spiritual/emotional support [] Crisis/trauma care [] Spiritual counseling [] Bereavement support [] Provided bereavement packet [xx] Provided Bible/devotional materials [] Provided toy/stuffed animal, coloring book to patient or family member [] Provided Communion [] Anointing/[place] [] Salvation [xx] Completed spiritual assessment [] Other: Impact on Illness or Injury [] Angry [] Fearful [] Anxious [] Often cries [] Exhaustion [] Unable to work [] Unable to attend mormonism [] Unable to walk/stand [] Unable to read [] Unable to drive [] Unable to eat/drink [] Unable to sleep [] Unable to be with family [] Patient intubated [] Other: Summary Patient's present. Patient stated she has her own fur clipper who will pray for her so mining captain did not pray but did have a nice visit with patient and her spouse. Patient accepted devotional [employer]. Time spent with patient 6 minutes
[2021-05-22] MEDS: ondansetron 2 mg/ML SDV 2 mL 4 MG IVP ×2 (11:55→18:07)
--- NOTE | 2021-05-22 14:13 | P.PN_ITS ---
Subjective Subjective: Interval history: Patient was seen and examined this morning, resting comfortably in bed, has some nausea, thinks she is tired after a long journey from [place]. Has remained afebrile, serum sodium is improving. Her other vitals and labs have been reviewed. Medications: Reviewed: Yes Vitals/I&O/Wt Last Vital Signs Temp 97.6 F 05/22/21 03:54 Pulse 104 H 05/22/21 06:53 Resp 20 H 05/22/21 11:38 BP 107/80 05/22/21 03:54 Pulse Ox 98 05/22/21 11:38 05/21/21 05/22/21 05/22/21 22:59 06:59 14:59 Intake Total 2200 / 2200 590 / 590 Balance 2200 / 2200 590 / 590 Weight last 48 hrs Weight 55.338 kg Physical Exam Const: COMMON NORMALS: patient oriented x3 HENMT: COMMON NORMALS: normocephalic and atraumatic HEAD & SCALP: normocephalic and atraumatic Resp: COMMON NORMALS: clear to auscultation bilaterally AUSCULTATION: clear to auscultation bilaterally Cardio: COMMON NORMALS: regular rate, regular rhythm, S1 normal heart sound present, S2 normal heart sound present, No gallops present (Cardio), No murmurs present (Cardio), No rub (Cardio) and Peripheral pulses 2+ throughout RATE: regular rate RHYTHM: regular rhythm HEART SOUNDS: S1 normal heart sound present and S2 normal heart sound present PERIPHERAL PULSES: Peripheral pulses 2+ throughout GI: AUSCULTATION: Yes normoactive bowel sounds OTHER: Clostomy bag in place with yellow stool, peritoneal catheter in place Extremity: COMMON NORMALS: no clubbing, cyanosis or edema and no pedal edema Neuro: COMMON NORMALS: patient oriented x3 Data : 05/22/21 05:50 05/22/21 05:50 Micro: Microbiology 05/21/21 20:00 Blood Culture - Preliminary Blood SPECIMEN COLLECTED 05/21/21 20:00 Blood Culture - Preliminary Blood SPECIMEN COLLECTED A&P Assessment and plan (1) Hyponatremia: Chronic euvolemic hyponatremia. Patient is received 2 L normal saline in the ER and currently on maintenance 30 cc an hour.We have stopped the normal saline. Will encourage p.o. intake. Monitor BMP. Status: Acute (2) Sepsis: Sepsis currently source is unknown: Elevated WBC, tachycardia, tachypnea. X-ray chest: No infiltrates Lactic acid normal Procalcitonin Blood culture Urinalysis urine culture Will discontinue Vanco and cefepime. Start her on ceftriaxone 1 mg IV daily. Status: Acute (3) Colon cancer metastasized to liver: She follows with her oncologist at [facility], has not successfully tolerated chemotherapy. Currently they are in process of exploring hospice Status: Acute (4) Colon cancer: Status: Acute Qualifiers: Colon location: unspecified part of colon Qualified Code(s): C18.9 - Malignant neoplasm of colon, unspecified (5) Elevated liver enzymes: Due to metastatic liver disease. Status: Acute Additional A&P Information Code Status :Full code DVT prophylaxis: SCDs Disposition:Home Attestations Medical Necessity Statement*: Patient needs to be in hospital for management of symptomatic hyponatremia and sepsis Coding Level of Care Code Acute Agency Legal Counsel for [facility] Fwd Diagnoses Hyponatremia E87.1 Sepsis A41.9 Colon cancer metastasized to liver C18.9; C78.7 Colon cancer C18.9 Colon location: unspecified part of colon Elevated liver enzymes R74.8
[2021-05-22] MEDS: cefTRIAXone 1,000 MG in sodium chloride 0.9% (plus) 50 ML 100 MG IV (18:12)
--- NOTE | 2021-05-22 19:50 | PC.NURSE ---
Shift Note Frequent safety and comfort rounds continue. Orders and/or nursing care completed as indicated. Patient monitored for response to intervention and treatment(s). Education provided includes new medications antibiotics lab results . Patient and/or sales representative livestock verbalized understanding. Will continue to monitor.
[2021-05-23] VITALS (12 sets, daily range): BP systolic 96–122; BP diastolic 74–88; PULSE 60–111; RESP 15–20; TEMP 36.4–36.9; O2SAT 93–100
[2021-05-23] MEDS: ondansetron 2 mg/ML SDV 2 mL 4 MG IVP ×3 (03:02→17:24)
[2021-05-23 03:19] LABS: Basophils # 0.1 10^3/uL (0.0-0.1); Basophils % 0.4 %; Eosinophils # 0.5 10^3/uL (0.0-0.8); Eosinophils % 1.6 %; Hematocrit 30.2 % (37.0-47.0); Hemoglobin 9.6 g/dL (11.5-15.3); Lymphocytes # 1.7 10^3/uL (0.8-4.8); Lymphocytes % 6.4 %; Mean Corpuscular HGB Conc 31.8 g/dL (30.0-36.0); Mean Corpuscular Hemoglobin 29.2 pg (28.0-34.0); Mean Corpuscular Volume 91.8 fL (81-99); Mean Platelet Volume 9.7 fL (7.4-10.4); Monocytes # 1.3 10^3/uL (0.2-0.9); Monocytes % 4.6 %; Neutrophils # 23.54 10^3/uL (1.8-7.7); Neutrophils % 86.1 %; Nucleated Red Blood Cells % 0 %; Platelet Count 264 10^3/cmm (130-400); Red Blood Count 3.29 10^6/uL (4.1-5.3); Red Cell Distribution Width 18.6 % (12.1-15.1); White Blood Count 27.4 10^3/uL (4.0-10.0)
[2021-05-23 03:55] LABS: Anion Gap 15.4 (5-19); Blood Urea Nitrogen 12 mg/dL (6-20); Calcium 7.7 mg/dL (8.5-10.5); Carbon Dioxide 18 mmol/L (22-29); Chloride 95 mmol/L (98-107); Glomerular Filtration Rate 88.9 mL/min (90-130); Glucose 83 mg/dL (65-115); Osmolality Calculated 257 mOsm/kg (285-295); Potassium 4.4 mmol/L (3.5-5.1); Sodium 124 mmol/L (136-145)
--- NOTE | 2021-05-23 04:49 | PC.NURSE ---
NURSING NOTE: SHIFT SUMMARY: PT ALERT AND ORIENTED X4, MOVES ALL EXTREMITIES AND FOLLOWS ALL COMMANDS. PT C/O NAUSEA X1 TIME THIS SHIFT/ ZOFRAN GIVEN ORDERED AND WAS EFFECTIVE PER PATIENT. NO C/O PAIN THIS SHIFT. ALL VS AND ASSESSMENTS CHARTED. WILL CONTINUE TO MONITOR.
[2021-05-23] MEDS: sodium chloride 1 gm Tablet PO ×2 (09:09→17:03)
[2021-05-23] MEDS: FUROsemide 10 mg/mL SDV 2mL 20 MG IVP (09:09)
[2021-05-23] MEDS: HYDROmorphone 1 mg/mL INJ 1 mL IVP ×2 (10:40→21:13)
--- NOTE | 2021-05-23 15:21 | PM.PN ---
Subjective Subjective: Interval history: Patient was seen and examined this morning, she is complaining of being nauseous as well as fatigued.WBC count has gone up ,serum sodium is at 124.She has continued She has remained afebrile. Medications: Reviewed: Yes Vitals/I&O/Wt Last Vital Signs Temp 97.5 F L 05/23/21 11:20 Pulse 109 H 05/23/21 11:20 Resp 15 05/23/21 11:20 BP 99/77 05/23/21 11:20 Pulse Ox 93 05/23/21 11:20 05/23/21 05/23/21 05/23/21 06:59 14:59 22:59 Intake Total 240 / 1777 Output Total 1050 / 2350 730 / 730 Balance -810 / -573 -730 / -730 Weight last 48 hrs Weight 55.338 kg Physical Exam Const: COMMON NORMALS: patient oriented x3 HENMT: COMMON NORMALS: normocephalic and atraumatic HEAD & SCALP: normocephalic and atraumatic Resp: COMMON NORMALS: clear to auscultation bilaterally AUSCULTATION: clear to auscultation bilaterally Cardio: COMMON NORMALS: regular rate, regular rhythm, S1 normal heart sound present, S2 normal heart sound present, No gallops present (Cardio), No murmurs present (Cardio), No rub (Cardio) and Peripheral pulses 2+ throughout RATE: regular rate RHYTHM: regular rhythm HEART SOUNDS: S1 normal heart sound present and S2 normal heart sound present PERIPHERAL PULSES: Peripheral pulses 2+ throughout GI: AUSCULTATION: Yes normoactive bowel sounds OTHER: Clostomy bag in place with yellow stool, peritoneal catheter in place Extremity: COMMON NORMALS: no clubbing, cyanosis or edema and no pedal edema Neuro: COMMON NORMALS: patient oriented x3 Data : 05/23/21 02:50 05/23/21 02:50 Micro: Microbiology 05/21/21 20:00 Blood Culture - Preliminary Blood NEGATIVE TO DATE 05/21/21 20:00 Blood Culture - Preliminary Blood NEGATIVE TO DATE A&P Assessment and plan (1) Hyponatremia: Chronic euvolemic hyponatremia. Patient is received 2 L normal saline in the ER and currently on maintenance 30 cc an hour.We have stopped the normal saline. Will encourage p.o. intake. Cortisol TSH Urinalysis Urine osmolality Serum osmolality Salt Tablet 1 mg po BID Lasix 20 mg po I.V * 1 Dose Monitor BMP. Status: Acute (2) Sepsis: Sepsis currently source is unknown: Elevated WBC, tachycardia, tachypnea. X-ray chest: No infiltrates Lactic acid normal Procalcitonin: Blood culture: NTD Urinalysis urine culture Will discontinue Vanco and cefepime. Currently on zosyn Status: Acute (3) Colon cancer metastasized to liver: She follows with her oncologist at [facility], has not successfully tolerated chemotherapy. Currently they are in process of exploring hospice Status: Acute (4) Colon cancer: Status: Acute Qualifiers: Colon location: unspecified part of colon Qualified Code(s): C18.9 - Malignant neoplasm of colon, unspecified (5) Elevated liver enzymes: Due to metastatic liver disease. Status: Acute Additional A&P Information Code Status :Full code DVT prophylaxis: SCDs Disposition:Home Attestations Medical Necessity Statement*: Patient needs to be in the hospital for management of sepsis and hyponatremia. Coding Level of Care Code Acute Nutrition Technician for [facility] Fwd Exam Detailed Diagnoses Hyponatremia E87.1 Sepsis A41.9 Colon cancer metastasized to liver C18.9; C78.7 Colon cancer C18.9 Colon location: unspecified part of colon Elevated liver enzymes R74.8
[2021-05-23] MEDS: piperacillin-tazobactam 3.375 GM in sodium chloride 0.9% (plus) 50 ML IV ×2 (15:25→23:14)
[2021-05-23] MEDS: albumin 12.5 GM/50 ML VIAL IV (16:56)
[2021-05-23] MEDS: HYDROmorphone 1 mg/mL INJ 1 mL 0.4 MG IVP (17:03)
--- NOTE | 2021-05-23 18:39 | PC.NURSE ---
Shift Note Frequent safety and comfort rounds continue. Orders and/or nursing care completed as indicated. Patient monitored for response to intervention and treatment(s). Education provided includes new medications zosyn and albumin. Patient and/or fraud representative patient and spouse verbalize understanding. Will continue to monitor.
[2021-05-24] VITALS (10 sets, daily range): BP systolic 102–121; BP diastolic 54–87; PULSE 65–116; RESP 14–22; TEMP 36.4–36.6; O2SAT 95–100
[2021-05-24] MEDS: HYDROmorphone 1 mg/mL INJ 1 mL IVP ×2 (01:42→10:08)
--- NOTE | 2021-05-24 01:45 | PC.NURSE ---
Addendum entered by Marilee Koehler RN 05/24/21 02:47: Dr. Anderson, not Dr. Moeller. Addendum entered by Marilee Koehler RN 05/24/21 02:47: Dr. Moeller ordered Benadryl x1 one to assist with sleep. Original Note: Patient refuses Oxycodone, states, I hate Oxy. It doesn't do anything. Patient requests PRN Dilaudid for pain. Patient is asking for something to help her sleep, states, even just a Tylenol PM would help. Attempt to contact Dr. Anderson. Awaiting response.
[2021-05-24] MEDS: diphenhydrAMINE 50 mg Capsule PO (02:50)
[2021-05-24 03:12] LABS: Basophils # 0.1 10^3/uL (0.0-0.1); Basophils % 0.3 %; Eosinophils # 0.4 10^3/uL (0.0-0.8); Hematocrit 29.7 % (37.0-47.0); Hemoglobin 9.1 g/dL (11.5-15.3); Lymphocytes # 1.7 10^3/uL (0.8-4.8); Lymphocytes % 7.8 %; Mean Corpuscular HGB Conc 30.6 g/dL (30.0-36.0); Mean Corpuscular Volume 94.6 fL (81-99); Mean Platelet Volume 10.1 fL (7.4-10.4); Monocytes # 1.4 10^3/uL (0.2-0.9); Monocytes % 6.5 %; Neutrophils # 18.19 10^3/uL (1.8-7.7); Neutrophils % 82.5 %; Nucleated Red Blood Cells % 0 %; Platelet Count 237 10^3/cmm (130-400); Red Blood Count 3.14 10^6/uL (4.1-5.3); Red Cell Distribution Width 18.5 % (12.1-15.1)
[2021-05-24 03:43] LABS: Procalcitonin 0.84 ng/mL (0-0.5); Thyroid Stimulating Hormone 2.33 uIU/mL (0.27-4.20)
[2021-05-24 03:55] LABS: Anion Gap 15.8 (5-19); Blood Urea Nitrogen 12 mg/dL (6-20); Calcium 7.9 mg/dL (8.5-10.5); Carbon Dioxide 18 mmol/L (22-29); Chloride 93 mmol/L (98-107); Glomerular Filtration Rate 106.3 mL/min (90-130); Glucose 80 mg/dL (65-115); Magnesium 1.6 mg/dL (1.7-2.3); Osmolality Calculated 255 mOsm/kg (285-295); Potassium 3.8 mmol/L (3.5-5.1); Sodium 123 mmol/L (136-145)
[2021-05-24 04:18] LABS: Cortisol Random 17.11 ug/dL (2.47-19.5)
[2021-05-24] MEDS: piperacillin-tazobactam 3.375 GM in sodium chloride 0.9% (plus) 50 ML IV ×2 (06:16→15:33)
--- NOTE | 2021-05-24 07:00 | PC.NURSE ---
Shift Note Frequent safety and comfort rounds continue. Orders and/or nursing care completed as indicated. Patient monitored for response to intervention and treatment(s). Education provided includes fall risk. Patient and/or mill representative verbalized understanding. Will continue to monitor.
[2021-05-24] MEDS: sodium chloride 1 gm Tablet 2 GM PO ×2 (09:03→18:08)
[2021-05-24] MEDS: ondansetron 2 mg/ML SDV 2 mL 4 MG IVP ×2 (11:24→16:09)
[2021-05-24] MEDS: lanolin oint 7 gm 1 APPLIC TOPICAL (17:56)
[2021-05-24] MEDS: magnesium sulfate premix 2 GM/50 ML PIGGYBACK IV (17:57)
--- NOTE | 2021-05-24 19:17 | PC.NURSE ---
Shift Note Frequent safety and comfort rounds continue. Orders and/or nursing care completed as indicated. Patient monitored for response to intervention and treatment(s). Education provided includes[magnesium and sodium tablets]. Patient and/or technical service representative [verb understanding of instructions]. pt's emptied the peritoneal drain...800 cc od straw colored fluid obtained.Will continue to monitor.
--- NOTE | 2021-05-24 20:01 | PC.NURSE ---
Shift Note Frequent safety and comfort rounds continue. Orders and/or nursing care completed as indicated. Patient monitored for response to intervention and treatment(s). Education provided includes Em, Renée and Zofran. Patient and/or community engagement representative verbalized complete understanding. Patient reports having pain 2-3/10 and indicates no need for pain medication at this time. Spouse at bedside assisting with toileting. Emptied BSC. Provided lemon-[place] soda per patient request due to nausea. Not time for next dose of Zofran. Patient verbalized understanding. Patient denies other needs. No distress observed. Will continue to monitor.
--- NOTE | 2021-05-24 23:59 | PC.NURSE ---
Transfer Note Patient transferred to [facility] bed 251-2 from U bed 102 via wheelchair. Handoff reported to MARAL Saenz. Patient oriented to environment and equipment. Covering service notified. Orders reviewed and will continue to monitor. Family and/or outbound sales representative notified.
[2021-05-25] VITALS (8 sets, daily range): BP systolic 85–92; BP diastolic 57–70; PULSE 87–104; RESP 16–18; TEMP 36.3–36.6; O2SAT 98–100
[2021-05-25] MEDS: piperacillin-tazobactam 3.375 GM in sodium chloride 0.9% (plus) 50 ML IV ×4 (00:05→22:58)
[2021-05-25 05:07] LABS: Basophils # 0.1 10^3/uL (0.0-0.1); Basophils % 0.3 %; Eosinophils # 0.3 10^3/uL (0.0-0.8); Eosinophils % 1.3 %; Hematocrit 26.3 % (37.0-47.0); Hemoglobin 8.6 g/dL (11.5-15.3); Lymphocytes % 10.7 %; Mean Corpuscular HGB Conc 32.7 g/dL (30.0-36.0); Mean Corpuscular Volume 91.6 fL (81-99); Mean Platelet Volume 10.5 fL (7.4-10.4); Monocytes # 1.1 10^3/uL (0.2-0.9); Neutrophils # 15.05 10^3/uL (1.8-7.7); Neutrophils % 80.8 %; Nucleated Red Blood Cells % 0 %; Platelet Count 213 10^3/cmm (130-400); Red Blood Count 2.87 10^6/uL (4.1-5.3); Red Cell Distribution Width 18.2 % (12.1-15.1); White Blood Count 18.6 10^3/uL (4.0-10.0)
[2021-05-25 05:22] LABS: Anion Gap 13.6 (5-19); Blood Urea Nitrogen 11 mg/dL (6-20); Calcium 7.5 mg/dL (8.5-10.5); Carbon Dioxide 19 mmol/L (22-29); Chloride 94 mmol/L (98-107); Glomerular Filtration Rate 131.1 mL/min (90-130); Glucose 76 mg/dL (65-115); Magnesium 1.9 mg/dL (1.7-2.3); Osmolality Calculated 254 mOsm/kg (285-295); Potassium 3.6 mmol/L (3.5-5.1); Sodium 123 mmol/L (136-145)
[2021-05-25] MEDS: oxyCODONE 5 mg IR Tab/Cap PO ×2 (07:30→18:09)
[2021-05-25] MEDS: sodium chloride 1 gm Tablet 2 GM PO ×2 (08:35→16:46)
[2021-05-25] MEDS: ondansetron 2 mg/ML SDV 2 mL 4 MG IVP ×2 (08:37→18:09)
--- NOTE | 2021-05-25 13:41 | P.PN_ITS ---
Subjective Subjective: Interval history: Patient was resting comfortably in her bed her sodium is 123 today no acute neurological deficits, normal TSH, cortisol level, she has been getting salt tablets, She was given Lasix as well yesterday 20 mg IV push Vitals/I&O/Wt Last Vital Signs Temp 97.6 F 05/25/21 11:29 Pulse 91 05/25/21 11:29 Resp 18 05/25/21 11:29 BP 86/64 05/25/21 11:29 Pulse Ox 98 05/25/21 11:29 05/24/21 05/25/21 05/25/21 22:59 06:59 14:59 Intake Total 490 / 1113 150 / 1263 360 / 360 Output Total 200 / 200 Balance 490 / 1113 -50 / 1063 360 / 360 Physical Exam Narrative: EXAM NARRATIVE: Patient was laying comfortably in her bed saturating well on room air S1, S2 sinus rhythm Abdomen soft nontender She drains 1 L every other day through peritoneal drain, No increased output from colostomy bag Bilateral breath sounds without adventitious sounds EOMI, PERRLA No neurological deficits Appropriate mood and affect Dehydrated malnourished emaciated Data : 05/25/21 04:20 05/25/21 04:20 A&P Assessment and plan (1) Leukocytosis: Status: Acute (2) Hyponatremia: Status: Acute (3) Colon cancer metastasized to liver: Status: Acute Additional A&P Information Chronic recurrent hyponatremia Patient volume status fluctuated between euvolemia to dehydration He drains 1 L through her peritoneal catheter every other day She is endorsing eating adequately despite anorexia She was given 1 dose of Lasix yesterday today sodium 123 I would resume her salt tablets for now She has normal TSH and cortisol level Magnesium 1.9 Sepsis: Resolved Leukocytosis improving, she has stayed afebrile, mild high procalcitonin noted Cultures negative to date, will de-escalate antibiotics tomorrow Her leukocytosis could be secondary to her underlying malignancy History of colon cancer metastasis to liver: Patient will go to hospice service Will be discharged to home with hospice service once she has proper arrangement manager of compliance updated Regular diet DVT prophylaxis SCD Attestations Medical Necessity Statement*: Awaiting set up of hospice services at home Time Spent in Patient Care: less than 15 minutes Coding Level of Care Code Acute Cassandra Developer for [facility] Fwd Diagnoses Leukocytosis D72.829 Hyponatremia E87.1 Colon cancer metastasized to liver C18.9; C78.7
[2021-05-26] VITALS (8 sets, daily range): BP systolic 86–90; BP diastolic 61–67; PULSE 98–114; RESP 16–18; TEMP 36.7–37.1; O2SAT 97–100
[2021-05-26] MEDS: ondansetron 2 mg/ML SDV 2 mL 4 MG IVP ×4 (00:21→17:58)
[2021-05-26 03:11] LABS: Basophils # 0.1 10^3/uL (0.0-0.1); Basophils % 0.3 %; Eosinophils # 0.3 10^3/uL (0.0-0.8); Eosinophils % 1.6 %; Hematocrit 30.9 % (37.0-47.0); Hemoglobin 9.6 g/dL (11.5-15.3); Lymphocytes # 1.8 10^3/uL (0.8-4.8); Lymphocytes % 8.7 %; Mean Corpuscular HGB Conc 31.1 g/dL (30.0-36.0); Mean Corpuscular Hemoglobin 29.4 pg (28.0-34.0); Mean Corpuscular Volume 94.8 fL (81-99); Mean Platelet Volume 10.8 fL (7.4-10.4); Monocytes # 1.4 10^3/uL (0.2-0.9); Monocytes % 6.5 %; Neutrophils # 17.21 10^3/uL (1.8-7.7); Neutrophils % 82.2 %; Nucleated Red Blood Cells % 0 %; Platelet Count 283 10^3/cmm (130-400); Red Blood Count 3.26 10^6/uL (4.1-5.3); Red Cell Distribution Width 18.6 % (12.1-15.1); White Blood Count 20.9 10^3/uL (4.0-10.0)
[2021-05-26 03:39] LABS: Anion Gap 12.8 (5-19); Blood Urea Nitrogen 12 mg/dL (6-20); Calcium 7.7 mg/dL (8.5-10.5); Carbon Dioxide 20 mmol/L (22-29); Chloride 97 mmol/L (98-107); Glomerular Filtration Rate 131.1 mL/min (90-130); Glucose 84 mg/dL (65-115); Osmolality Calculated 261 mOsm/kg (285-295); Potassium 3.8 mmol/L (3.5-5.1); Sodium 126 mmol/L (136-145)
--- NOTE | 2021-05-26 04:26 | PC.NURSE ---
i reported high pluse 103 to the nurse
--- NOTE | 2021-05-26 05:21 | PC.NURSE ---
Shift Note Frequent safety and comfort rounds continue. Orders and/or nursing care completed as indicated. Patient monitored for response to intervention and treatment. Education provided includes[for safety]. Patient verbalized understanding, rested well this shift, utilized nausea med. shift uneventful. Will continue to monitor.
[2021-05-26] MEDS: piperacillin-tazobactam 3.375 GM in sodium chloride 0.9% (plus) 50 ML IV (06:18)
[2021-05-26] MEDS: sodium chloride 1 gm Tablet 2 GM PO ×2 (08:18→17:58)
[2021-05-26] MEDS: oxyCODONE 5 mg IR Tab/Cap PO ×2 (09:36→17:58)
--- NOTE | 2021-05-26 13:53 | PM.PN ---
Subjective Subjective: Interval history: No overnight events, was complaining abdominal distention, she has not been drained via peritoneal catheter stating her would take care of it Looking forward to go home Awaiting authorization for acceptance by hospice companies Vitals/I&O/Wt Last Vital Signs Temp 98.3 F 05/26/21 11:16 Pulse 106 H 05/26/21 11:16 Resp 18 05/26/21 11:16 BP 89/64 05/26/21 11:16 Pulse Ox 100 05/26/21 11:16 05/25/21 05/26/21 05/26/21 22:59 06:59 14:59 Intake Total 50 / 460 110 / 570 530 / 530 Output Total 1300 / 1300 Balance 50 / 460 110 / 570 -770 / -770 Physical Exam Narrative: EXAM NARRATIVE: Patient was laying comfortably in her bed Positive output from colostomy bag No severe distention of abdomen noted No signs of peritonitis S1, S2 sinus rhythm Emaciated malnourished, able to eat moist mucous membranes Thin extremities Appropriate mood and affect Data : 05/26/21 02:20 05/26/21 02:20 A&P Assessment and plan (1) Leukocytosis: Status: Acute (2) Sepsis: Status: Acute (3) Hyponatremia: Status: Acute (4) Hypokalemia due to excessive gastrointestinal loss of potassium: Status: Acute (5) Colon cancer metastasized to liver: Status: Acute Additional A&P Information Patient is awaiting acceptance by hospice No overnight events, persistent leukocytosis, she is afebrile, antibiotics to be discontinued Goals of care discussed with the patient, she does not want chest compressions or intubation, patient is stating that she would try her best not to get admitted in case of worsening of her symptoms as well, looking forward to go home today Sodium 126 Attestations Medical Necessity Statement*: Awaiting authorization for hospice Time Spent in Patient Care: less than 15 minutes Coding Level of Care Code Acute Clinical Services Consultant for [facility] Fwd Diagnoses Leukocytosis D72.829 Sepsis A41.9 Hyponatremia E87.1 Hypokalemia due to excessive gastrointestinal loss of potassium E87.6 Colon cancer metastasized to liver C18.9; C78.7
--- NOTE | 2021-05-26 20:21 | PC.NURSE ---
i reported high pluse 123 to nurse retook it 114
[2021-05-27] VITALS (8 sets, daily range): BP systolic 76–92; BP diastolic 57–61; PULSE 110–118; RESP 16–18; TEMP 36.5–37; O2SAT 94–99
--- NOTE | 2021-05-27 00:19 | PC.NURSE ---
I reported high pluse 118 to nurse
[2021-05-27] MEDS: oxyCODONE 5 mg IR Tab/Cap PO ×3 (02:12→14:20)
[2021-05-27] MEDS: calcium carbonate 500 mg Chew Tablet PO (02:38)
--- NOTE | 2021-05-27 04:20 | PC.NURSE ---
I reported high pulse 110 to nurse
[2021-05-27] MEDS: sodium chloride 1 gm Tablet 2 GM PO (08:17)
--- NOTE | 2021-05-27 16:38 | P.DS_ITS ---
Discharge Providers Date of Admission: 05/23/21 18:00 Date of Discharge: May 27, 2021 Attending Provider at Admission: Salma Moeller MD Attending Provider at Discharge: Salma Moeller MD Primary Care Provider: BRENDON Finnegan Diagnoses at Discharge Discharge Diagnosis (1) Leukocytosis: Status: Acute (2) Sepsis: Status: Acute (3) Hyponatremia: Status: Acute (4) Hypokalemia due to excessive gastrointestinal loss of potassium: Status: Acute (5) Colon cancer metastasized to liver: Status: Acute Reason for Visit Reason for Visit: low sodium Hospital Course Hospital Course HPI bryson Tejeda is a 50 year old female who has history of descending colon cancer with metastatic lesions throughout the liver, follows up at [facility] oncologist, she was there today for follow-up appointment and decision was made to pursue hospice care secondary to her poor functional status, she was asked to go to the ER because of her severe hyponatremia. Patient is stating that she uses walker for ambulation at home, no recent diarrhea, fever, chest pain shortness of breath or productive cough. She is not vaccinated with COVID-19. She is denying nausea, vomiting. She is trying to eat 3 times a day despite her anorexia. She has not noticed increased output from her colostomy bag, she drains 1 L from peritoneal drain every other night. Diagnostic work-up in the ER revealed severe leukocytosis, she is afebrile, she is not neutropenic, sodium 125, previous sodium has been fluctuating between 128-129 as well, bilirubin 1.6, mildly elevated transaminases, albumin 2.3,Normal TSH, Patient is complaining of lethargy and fatigue Hospital course Patient was admitted for management of severe hyponatremia and fatigue. She was sent by her doctor from [facility] after abnormal blood work. Patient sodium was 122 on day of admission & at the time of discharge Na level 126. She was started on salt tablets. Her hyponatremia was secondary to poor p.o. intake and peritoneal drain and electrolyte malabsorption. She stayed afebrile, antibiotics were discontinued which were initiated at the time of admission for concern of sepsis related to her immunocompromise state however she has persistent leukocytosis, blood cultures negative, group A strep negative, enteric pathogen panel negative, stool C. difficile panel negative. Antibiotics were discontinued. Patient was discharged home with home hospice services. At the time of discharge she was given Ativan and oxycodone. Further medications to be decided by hospice care. Normal cortisol and TSH level, clinically she looks dehydrated and emaciated. Physical Exam Narrative: EXAM NARRATIVE: Patient was laying comfortably in her bed Positive output from colostomy bag No severe distention of abdomen noted No signs of peritonitis S1, S2 sinus rhythm Emaciated malnourished, able to eat moist mucous membranes Thin extremities Appropriate mood Discharge Data Vitals: Last Vital Signs Temp 97.9 F 05/27/21 14:18 Pulse 115 H 05/27/21 14:18 Resp 16 05/27/21 14:20 BP 76/59 05/27/21 14:18 Pulse Ox 99 05/27/21 14:18 Discharge Plan Discharge Patient Disposition: Hospice - Home Condition: Stable Prescriptions: New sodium chloride 1 gram Tablet 2 g PO BID 10 Days Qty: 40 RF: 0 Ativan 0.5 mg tablet 0.25 mg PO Q8H PRN (Reason: anxiety) Qty: 30 RF: 0 oxycodone 10 mg tablet 10 mg PO Q8H Qty: 20 RF: 0 oxycodone 10 mg tablet 10 mg PO Q6H Qty: 20 RF: 0 Continued ondansetron HCl [Zofran] 4 mg Tablet 8 mg PO Q6H PRN (Reason: Nausea) RF: 0 potassium chloride [Klor-Con M20] 20 mEq tablet,ER particles/crystals 20 meq PO DAILY RF: 0 Imodium A-D See Rx Instructions .ROUTE .COMPLEX RF: 0 Magic Mouthwash See Rx Instructions .ROUTE .COMPLEX RF: 0 Vitamin D3 1 tab PO DAILY RF: 0 Discharge Orders: Discharge Order (Routine); Ordered 05/27/21 Ordered By: Salma Moeller Referrals: [facility] [Outside] LOUIS Cabrera, LINING STITCHER [Primary Care Provider] - 06/01/21 1:00 pm Discharge Diet: Regular Discharge Activity: Increase activity as tolerated Patient Instructions: Lorazepam (By mouth), Oxycodone, Rapid Release (By mouth), Hospice Care (GEN), Sepsis (DC), Leukocytosis (DC) Discharge Attestations Time Spent in Discharge Care*: less than 30 min Quality Metrics Clinical Quality Measures During this hospital stay, did patient experience: None Coding Level of Care Code Acute Chg FW DC note Diagnoses Leukocytosis D72.829 Sepsis A41.9 Hyponatremia E87.1 Hypokalemia due to excessive gastrointestinal loss of potassium E87.6 Colon cancer metastasized to liver C18.9; C78.7
== END 2021-05-27 14:22 | disposition hospice, home (50) | DRG 872 ==
LOC: ER 05-22 01:32 → CSU 05-22 05:43 → MEDSURG 05-24 23:20
PROVIDERS: Internal Medicine; Nurse Practitioner Family; Admitting Provider Internal Medicine; Emergency Provider Emergency Medicine; PCP Nurse Practitioner Family; Visit Provider Internal Medicine
DX: A41.9 Sepsis, unspecified organism (principal); C18.9 Malignant neoplasm of colon, unspecified; C78.7 Secondary malignant neoplasm of liver and intrahepatic bile duct; E87.1 Hypo-osmolality and hyponatremia; K21.9 Gastro-esophageal reflux disease without esophagitis; R74.8 Abnormal levels of other serum enzymes; E86.0 Dehydration; E87.6 Hypokalemia; Z75.1 Person awaiting admission to adequate facility elsewhere; Z83.3 Family history of diabetes mellitus; Z82.49 Family history of ischemic heart disease and other diseases of the circulatory system
CPT/HCPCS: 36415; 36591; 80048; 80053; 81001; 82533; 83605; 83735; 84145; 84443; 85025; 87040; 93005; 96361; 96374; 96375; 99285; 99291; 99292; G0378; J0692; J0696; J1170; J1642; J1940; J2270; J2405; J2543; J3370; J3475; J7030; J7050; P9047; Q0163